=== PATIENT | male | born 1970 | race Caucasian/White ===

== ENCOUNTER 2016-12-27 20:51 | Inpatient (IN) ==
--- NOTE | 2016-12-27 21:13 | Emergency Department Note ---
Disposition Clinical Impression: Elevated troponin I level, Paroxysmal atrial fibrillation with rapid ventricular response Pulmonary embolism Qualifiers: Pulmonary embolism type: other Chronicity: acute Disposition: Admitted As Inpatient Condition: Serious Referrals: Unassigned,Provider [Primary Care Provider] - Forms: ED Satisfaction Letter General Adult HPI - General Chief complaint: ED Shortness of Breath/Dyspnea Stated complaint: JOSÉ MIGUEL, "I want checked for my A-fib", Out of meds Time Seen by Provider: 12/27/16 20:59 Source: patient Limitations: no limitations Nursing Notes Reviewed: Yes Vital Signs Reviewed: Yes - History of Present Illness Pain Scale: 0 - Related Data Home Medications Medication Instructions Recorded Confirmed Albuterol Sulfate [Ventolin Hfa] 2 puff IH Q4H PRN 05/28/16 12/27/16 Ammonium Lactate [Patricia-Hydrolac] 1 appl TP BID PRN 05/28/16 12/27/16 Beclomethasone Diprop 40mcg [QVAR 1 puff IH BID 05/28/16 12/27/16 40 mcg] SUMAtriptan succinate [Imitrex] 50 mg PO DAILY PRN 05/28/16 12/27/16 metFORMIN [Glucophage] 500 mg PO BIDWM 05/28/16 12/27/16 Oxycodone HCl/Acetaminophen 1 each PO Q6H PRN 12/27/16 12/27/16 [Percocet 10-325 mg Tablet] Previous Rx's Medication Instructions Recorded Lisinopril [Zestril] 10 mg PO DAILY #30 tablet 06/04/16 Pravastatin Sodium [Pravachol] 40 mg PO HS #30 tablet 06/04/16 Allergies Allergy/AdvReac Type Severity Reaction Status Date / Time No Known Allergies Allergy Verified 09/21/16 15:13 Past Medical History - Past Medical History Medical history: Reports: arthritis, asthma, atrial fibrillation, COPD, CVA, diabetes, hyperlipidemia, hypertension, renal disease, TIA Surgical history: Reports: non-contributory, other Psychiatric history: Reports: anxiety, PTSD, other - Social History Smoking Status: Never smoker Smokeless Tobacco Status: No Alcohol use: Reports: none Drug use: Reports: none Physical Exam - General Limitations: no limitations General appearance: alert, in no apparent distress Course Vital Signs Temperature 97.4 F L 12/27/16 20:56 Pulse Rate 73 12/27/16 20:56 Respiratory Rate 18 06/29/17 20:56 Blood Pressure 91/57 12/27/16 20:56 O2 Sat by Pulse Oximetry 91 12/27/16 20:56 Temperature 97.4 F L 12/27/16 20:56 Pulse Rate 90 12/27/16 22:36 Respiratory Rate 18 12/27/16 22:36 Blood Pressure 103/72 12/27/16 22:36 O2 Sat by Pulse Oximetry 93 12/27/16 22:36 Oxygen Delivery Oxygen Delivery Non Rebreather Mask Medical Decision Making - MDM Narrative Medical decision making narrative: I examined this patient and my medical decision-making was reviewed with the ELECTRONICS RESEARCH ENGINEER/PA/Advanced Practice Nurse/Resident Physician. I agree with the documented findings, disposition and treatment plan as described except to the extent set forth below. Patient seen today by Dr. Rico and myself, I agree with her evaluation and management plan, supervised care the patient's stay. Patient comes in today and probable A. fib with RVR rapid heart rate some shortness of breath. He has a history of A. fib and has been off his medicines for a while. 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 He do not flex tonight, Coumadin, and he thinks maybe a beta kevin in the past. No meds now. Work in a check an EKG lab work working him up for A. fib and CHF and reassess. Most likely he will need admission. He is in agreement with this plan. 2112 hrs.: Patient had an EKG performed, shows atrial fibrillation, rate is 116 , rapid ventricular response, QRS is 106, QTC is 437, no signs of acute ischemia , compared this with an EKG he had in 2016 that EKG he was in sinus rhythm. Patient has had a history of atrial fibrillation in the past. Chest X-Ray 12/27/16 21:05 IMPRESSION: No acute cardiopulmonary process. D/ / Rogerio Mijares MD / Rogerio Mijares MD Interpreting Provider: Rogerio Mijares MD 2140 hrs.: Patient still is hypoxic on the pulse ox. Room out on a d-dimer also since he is low-moderate risk for PE. Discussing with Dr. Peñaloza from cardiology. 0 hrs.: Patient's troponin is elevated at 0.18 per lab, his creatinine is slightly elevated due to looks like chronic renal insufficiency which she has had higher elevations in the past. I am wondering if this could be causing some of his hypoxia. We did check his chest x-ray which shows no CHF at this time. Waiting N d-dimer, BNP, his old echocardiogram showed a 60% ejection fraction. We are starting heparin at this time. 2214 hrs.: Patient's d-dimer is elevated to over 128,000. Unfortunately his creatinine is elevated also. It has been higher in the past. He does have fluids going and heparin. Cinthia does have a PE that would be the first treatment. We have discussed with him about getting a CTA despite his creatinine being elevated or reporting off and getting a VQ scan and see which she prefers to do. 0 hrs.: Lab called back and said his d-dimer was extra 12,800 and a made correction. Distal elevated. We spoke to the hospitalist they agreed with the admission and hold off on the CTA at this time. We told him that our preference would be to place him in the ICU but they disagreed and said they thought that stepdown unit instead. I asked them to see the patient as soon as he gets to the floor or see him down here. Patient's doing better at this time , vitals are stable. Patient is agreement to the plan for admission. He has the heparin going and the Cardizem. He has had aspirin also. Patient's critical care time exclusive separately billable procedures is 50 minutes. - Lab Data Result diagrams: 12/27/16 21:12 12/27/16 21:12 Lab Results 12/27/16 12/27/16 12/27/16 Range/Units 21:12 21:12 21:12 WBC 12.9 H (4.3-11.1) K/mcL RBC 6.28 H (4.19-5.50) M/mcL Hgb 16.6 (12.9-16.9) g/dL Hct 52.2 H (37.5-50.1) % MCV 83.1 (83.0-100.0) fL MCH 26.4 L (28.0-33.3) pg MCHC 31.8 (31.6-35.5) g/dL RDW 13.9 (11.5-14.5) % Plt Count 221 (140-400) K/mcL MPV 12.5 H (9.4-12.4) fL Immature Gran % 0.3 (0-4) % Seg Neutrophils % 75.1 % Lymphocytes % 18.0 % Monocytes % 6.1 % Eosinophils % 0.2 % Basophils % 0.3 % Neutrophils # 9.7 H (1.6-8.9) K/mcL Lymphocytes # 2.3 (0.6-4.6) K/mcL Monocytes # 0.8 (0.0-1.3) K/mcL Eosinophils # 0.0 (0.0-0.6) K/mcL Basophils # 0.0 (0.0-0.2) K/mcL PT 13.0 H (9.4-12.1) Seconds INR 1.2 APTT 36.1 H (26.0-36.0) Seconds D-Dimer 77498 H (0-500) ng/mLFEU Sodium 139 (136-145) mEq/L Potassium 3.3 L (3.5-4.5) mEq/L Chloride 100 (98-109) mEq/L Carbon Dioxide 24 (19-29) mEq/L BUN 20 (8-26) mg/dL Creatinine 1.83 H (0.72-1.25) mg/dL Est GFR ( Amer) 48 L (> 60) Est GFR (Non-Af Amer) 40 L (> 60) BUN/Creatinine Ratio 11 (6-26) Glucose 139 H (70-99) mg/dL Calculated Osmolality 293 (280-300) Calcium 10.1 (8.6-10.8) mg/dL Troponin I (0-0.03) ng/mL B-Natriuretic Peptide (0-100) pg/mL 12/27/16 12/27/16 Range/Units 21:12 21:12 WBC (4.3-11.1) K/mcL RBC (4.19-5.50) M/mcL Hgb (12.9-16.9) g/dL Hct (37.5-50.1) % MCV (83.0-100.0) fL MCH (28.0-33.3) pg MCHC (31.6-35.5) g/dL RDW (11.5-14.5) % Plt Count (140-400) K/mcL MPV (9.4-12.4) fL Immature Gran % (0-4) % Seg Neutrophils % % Lymphocytes % % Monocytes % % Eosinophils % % Basophils % % Neutrophils # (1.6-8.9) K/mcL Lymphocytes # (0.6-4.6) K/mcL Monocytes # (0.0-1.3) K/mcL Eosinophils # (0.0-0.6) K/mcL Basophils # (0.0-0.2) K/mcL PT (9.4-12.1) Seconds INR APTT (26.0-36.0) Seconds D-Dimer (0-500) ng/mLFEU Sodium (136-145) mEq/L Potassium (3.5-4.5) mEq/L Chloride (98-109) mEq/L Carbon Dioxide (19-29) mEq/L BUN (8-26) mg/dL Creatinine (0.72-1.25) mg/dL Est GFR ( Amer) (> 60) Est GFR (Non-Af Amer) (> 60) BUN/Creatinine Ratio (6-26) Glucose (70-99) mg/dL Calculated Osmolality (280-300) Calcium (8.6-10.8) mg/dL Troponin I 0.12 H* (0-0.03) ng/mL B-Natriuretic Peptide 178 H (0-100) pg/mL
[2016-12-27 21:24] LABS: Basophils % 0.3 %; Eosinophils % 0.2 %; Hematocrit 52.2 % (37.5-50.1); Hemoglobin 16.6 g/dL (12.9-16.9); Immature Granulocytes % 0.3 % (0-4); Lymphocytes # 2.3 K/mcL (0.6-4.6); Mean Corpuscular HGB Conc 31.8 g/dL (31.6-35.5); Mean Corpuscular Hemoglobin 26.4 pg (28.0-33.3); Mean Corpuscular Volume 83.1 fL (83.0-100.0); Mean Platelet Volume 12.5 fL (9.4-12.4); Monocytes # 0.8 K/mcL (0.0-1.3); Monocytes % 6.1 %; Neutrophils # 9.7 K/mcL (1.6-8.9); Platelet Count 221 K/mcL (140-400); Red Blood Count 6.28 M/mcL (4.19-5.50); Red Cell Distribution Width 13.9 % (11.5-14.5); Segmented Neutrophils % 75.1 %
[2016-12-27 21:30] LABS: INR 1.2
[2016-12-27 21:32] LABS: Activated Partial Thrombo Time 36.1 Seconds (26.0-36.0)
[2016-12-27 21:41] LABS: Calcium 10.1 mg/dL (8.6-10.8); Potassium 3.3 mEq/L (3.5-4.5)
[2016-12-27] MEDS ORDERED: 0.9 % Sodium Chloride 1,000 ML IVC ONE (21:44)
[2016-12-27] MEDS ORDERED: *HR* Heparin 5,000 UNIT/ML VIAL IVP ONE (21:44)
[2016-12-27] MEDS ORDERED: *HR* Heparin 5,000 UNIT/ML VIAL IVP PRN ×2 (21:44)
[2016-12-27] MEDS ORDERED: Aspirin 81 MG TAB.CHEW PO STA (21:52)
[2016-12-27] MEDS: Heparin 25,000 UNIT/500 ML D5W 25,000 UNIT/500 ML MLS IVC SCH (22:12)
--- NOTE | 2016-12-27 23:29 | Emergency Department Note ---
Disposition Clinical Impression: Elevated troponin I level, Paroxysmal atrial fibrillation with rapid ventricular response, ZULEIMA (acute kidney injury) Pulmonary embolism Qualifiers: Pulmonary embolism type: other Chronicity: acute Acute cor pulmonale presence: without acute cor pulmonale Qualified Code(s): I26.99 - Other pulmonary embolism without acute cor pulmonale Disposition: Admitted As Inpatient Condition: Fair Forms: ED Satisfaction Letter Time of Disposition: 23:33 SOB HPI - General Chief Complaint: ED Shortness of Breath/Dyspnea Stated Complaint: JOSÉ MIGUEL, "I want checked for my A-fib", Out of meds Time Seen by Provider: 12/27/16 20:59 Source: patient Limitations: no limitations Nursing Notes Reviewed: Yes Vital Signs Reviewed: Yes - History of Present Illness Patient is a 46-year-old male who presents to [facility] ED with a chief complaint of breathing. States his symptoms started earlier today. It is much worse with exertion. States he has a history of atrial fibrillation with RVR. He has been off his medications for the last 2 months. He is supposed to be on Coumadin, flecainide, metoprolol. States he is in transition from Dr. Pedroza to Dr. Peñaloza and has not gotten in to see him to get his medications yet. Denies any chest pain. No nausea, vomiting, fever or chills. No abdominal pain, problems with urination or bowel movements. Pt Subjective Complaint: shortness of breath Onset (ago): hour(s) Severity: severe Consistency/Duration: gradually worsening Improves with: rest Worsens with: exertion Known history of: other (a fib) Associated symptoms: Denies: chest pain, fever, cough, nausea/vomiting, abdominal pain Treatment prior to arrival: none Cough present: No Sputum production: No - Related Data Home oxygen amount: none Home Medications Medication Instructions Recorded Confirmed Albuterol Sulfate [Ventolin Hfa] 2 puff IH Q4H PRN 05/28/16 12/27/16 Ammonium Lactate [Patricia-Hydrolac] 1 appl TP BID PRN 05/28/16 12/27/16 Beclomethasone Diprop 40mcg [QVAR 1 puff IH BID 05/28/16 12/27/16 40 mcg] SUMAtriptan succinate [Imitrex] 50 mg PO DAILY PRN 05/28/16 12/27/16 metFORMIN [Glucophage] 500 mg PO BIDWM 05/28/16 12/27/16 Oxycodone HCl/Acetaminophen 1 each PO Q6H PRN 12/27/16 12/27/16 [Percocet 10-325 mg Tablet] Previous Rx's Medication Instructions Recorded Lisinopril [Zestril] 10 mg PO DAILY #30 tablet 06/04/16 Pravastatin Sodium [Pravachol] 40 mg PO HS #30 tablet 06/04/16 Allergies Allergy/AdvReac Type Severity Reaction Status Date / Time No Known Allergies Allergy Verified 09/21/16 15:13 All systems ED: reviewed and negative except as stated. Past Medical History - Past Medical History Attestation: Yes The following information was validated with the patient. Source: patient Medical history: Reports: arthritis, asthma, atrial fibrillation, COPD, CVA, diabetes, hyperlipidemia, hypertension, renal disease, TIA Surgical history: Reports: non-contributory, other Psychiatric history: Reports: anxiety, PTSD, other - Social History Smoking Status: Never smoker Smokeless Tobacco Status: No Alcohol use: Reports: none Drug use: Reports: none Physical Exam - General Limitations: no limitations General appearance: alert, in no apparent distress - Head Head exam: atraumatic, normocephalic, normal inspection - Eye Eye exam: Present: normal appearance, EOMI - ENT ENT exam: normal exam, normal oropharynx, mucous membranes moist - Neck Neck exam: Present: normal inspection, full ROM, trachea midline - Chest Chest inspection: Present: normal inspection, symmetric chest wall rise - Respiratory Respiratory exam: Present: normal lung sounds bilaterally - Cardiovascular Cardiovascular exam: Present: tachycardia, irregular rhythm - Abdominal Exam Abdominal exam: Present: soft, Non-Tender. Absent: tenderness, distention, guarding, rebound, rigidity - Extremities Exam Extremities exam: Present: normal inspection, full ROM. Absent: tenderness, pedal edema - Back Exam Back exam: Present: normal inspection, full ROM. Absent: tenderness - Neurological Exam Neurological exam: Present: alert - Psychiatric Psychiatric exam: Present: normal affect, normal mood - Skin Skin exam: Present: warm, dry, intact, normal color Course Course Narrative: Patient seen and examined. Patient appears to be in atrial fibrillation with RVR. Cardiopulmonary workup initiated. Due to the sudden onset of his symptoms , we will also get a dimer level. His oxygen saturation on room air is 82%. He is not on any home oxygen. EKG showed atrial fibrillation with a rate of approximately 116 bpm. He is anywhere from 120 to 130 on the monitor. - Reevaluation(s) Reevaluation #1: Patient's lab work shows troponin of 0.12, BNP in the 120s. Chest x-ray appeared clear. Patient was slightly hypotensive with a blood pressure 90/60, 1 L of IV fluids ordered. He also has signs of acute kidney injury. Patient has never seen a manager purchasing in the past. D-dimer level was also elevated over 12,000. There is concern for a pulmonary embolus. However do not feel patient would tolerate going down for a VQ scan at this time. Patient started on Cardizem drip as well as heparin drip. I spoke with paper colorer Dr. Peñaloza who will consult on the patient. I spoke with hospitalist Dr. Wynn and patient has been admitted. Time: 23:32 Vital Signs Temperature 97.4 F L 12/27/16 20:56 Pulse Rate 73 12/27/16 20:56 Respiratory Rate 18 12/27/16 20:56 Blood Pressure 91/57 12/27/16 20:56 O2 Sat by Pulse Oximetry 91 12/27/16 20:56 Temperature 97.4 F L 12/27/16 20:56 Pulse Rate 90 12/27/16 22:36 Respiratory Rate 18 12/27/16 23:15 Blood Pressure 108/73 12/27/16 23:15 O2 Sat by Pulse Oximetry 93 12/27/16 22:36 Oxygen Delivery Oxygen Delivery Non Rebreather Mask Shortness of Breath/Dyspnea - Medical Records Medical records reviewed: Yes I reviewed the patient's medical records. - Lab Data Lab results reviewed: Yes I reviewed the patient's lab results. Result diagrams: 12/27/16 21:12 12/27/16 21:12 Lab Results 12/27/16 12/27/16 12/27/16 Range/Units 21:12 21:12 21:12 WBC 12.9 H (4.3-11.1) K/mcL RBC 6.28 H (4.19-5.50) M/mcL Hgb 16.6 (12.9-16.9) g/dL Hct 52.2 H (37.5-50.1) % MCV 83.1 (83.0-100.0) fL MCH 26.4 L (28.0-33.3) pg MCHC 31.8 (31.6-35.5) g/dL RDW 13.9 (11.5-14.5) % Plt Count 221 (140-400) K/mcL MPV 12.5 H (9.4-12.4) fL Immature Gran % 0.3 (0-4) % Seg Neutrophils % 75.1 % Lymphocytes % 18.0 % Monocytes % 6.1 % Eosinophils % 0.2 % Basophils % 0.3 % Neutrophils # 9.7 H (1.6-8.9) K/mcL Lymphocytes # 2.3 (0.6-4.6) K/mcL Monocytes # 0.8 (0.0-1.3) K/mcL Eosinophils # 0.0 (0.0-0.6) K/mcL Basophils # 0.0 (0.0-0.2) K/mcL PT 13.0 H (9.4-12.1) Seconds INR 1.2 APTT 36.1 H (26.0-36.0) Seconds D-Dimer 58863 H (0-500) ng/mLFEU Sodium 139 (136-145) mEq/L Potassium 3.3 L (3.5-4.5) mEq/L Chloride 100 (98-109) mEq/L Carbon Dioxide 24 (19-29) mEq/L BUN 20 (8-26) mg/dL Creatinine 1.83 H (0.72-1.25) mg/dL Est GFR ( Amer) 48 L (> 60) Est GFR (Non-Af Amer) 40 L (> 60) BUN/Creatinine Ratio 11 (6-26) Glucose 139 H (70-99) mg/dL Calculated Osmolality 293 (280-300) Calcium 10.1 (8.6-10.8) mg/dL Troponin I (0-0.03) ng/mL B-Natriuretic Peptide (0-100) pg/mL 12/27/16 12/27/16 Range/Units 21:12 21:12 WBC (4.3-11.1) K/mcL RBC (4.19-5.50) M/mcL Hgb (12.9-16.9) g/dL Hct (37.5-50.1) % MCV (83.0-100.0) fL MCH (28.0-33.3) pg MCHC (31.6-35.5) g/dL RDW (11.5-14.5) % Plt Count (140-400) K/mcL MPV (9.4-12.4) fL Immature Gran % (0-4) % Seg Neutrophils % % Lymphocytes % % Monocytes % % Eosinophils % % Basophils % % Neutrophils # (1.6-8.9) K/mcL Lymphocytes # (0.6-4.6) K/mcL Monocytes # (0.0-1.3) K/mcL Eosinophils # (0.0-0.6) K/mcL Basophils # (0.0-0.2) K/mcL PT (9.4-12.1) Seconds INR APTT (26.0-36.0) Seconds D-Dimer (0-500) ng/mLFEU Sodium (136-145) mEq/L Potassium (3.5-4.5) mEq/L Chloride (98-109) mEq/L Carbon Dioxide (19-29) mEq/L BUN (8-26) mg/dL Creatinine (0.72-1.25) mg/dL Est GFR ( Amer) (> 60) Est GFR (Non-Af Amer) (> 60) BUN/Creatinine Ratio (6-26) Glucose (70-99) mg/dL Calculated Osmolality (280-300) Calcium (8.6-10.8) mg/dL Troponin I 0.12 H* (0-0.03) ng/mL B-Natriuretic Peptide 178 H (0-100) pg/mL
[2016-12-28] MEDS ORDERED: Naloxone 0.4 MG/ML INJ IVP PRN (01:56)
[2016-12-28] MEDS ORDERED: Ammonium Lactate 30 APPL/225 GM BOTTLE TP PRN (02:02)
[2016-12-28] MEDS ORDERED: SUMAtriptan succinate 50 MG TABLET PO PRN (02:02)
[2016-12-28] MEDS ORDERED: *HR* Dextrose 50 % in Water (Syg) 50 ML SYRINGE IVP PRN (02:03)
[2016-12-28] MEDS ORDERED: D5% in Water 1,000 ML IVC PRN (02:03)
[2016-12-28] MEDS ORDERED: Dextrose Gel 15 GM PO PRN ×2 (02:03)
[2016-12-28] MEDS ORDERED: Levalbuterol Neb 1.25 MG/3 ML IH ONE (02:13)
--- NOTE | 2016-12-28 02:15 | Internal Med History&Physical ---
Date of Encounter: 12/28/16 Time of Encounter: 02:14 Assessment and Plan (1) Acute respiratory failure with hypoxia Current visit: Yes Status: Acute Likely due to suspected pulmonary embolism. Continue with supplemental Oxygen. (2) Atrial fibrillation with RVR Current visit: Yes Status: Acute Known h/o A Fib. Been off medications. Started on diltiazem infusion, with improvement of heart rate. Will obtain echocardiogram. Check TSH. Pt is started on heparin infusion. Consider cardiology consultation. (3) Elevated d-dimer Current visit: Yes Status: Acute suspected to be due to pulmonary embolism. Patient is empirically started on heparin infusion. CTA could not be obtained due to ZULEIMA. Recheck renal function, to get CTA chest. If renal function is not improved, will obtain VQ scan (4) Elevated troponin Current visit: Yes Status: Acute Possibly due to ACS versus pulmoary embolism. Trend troponins (5) ZULEIMA (acute kidney injury) Current visit: Yes Status: Acute Pt received IV fluids. Monitor renal function (6) Leucocytosis Current visit: Yes Status: Acute Possible stress response versus infection. No obvious source of infection at this time. Monitor WBC count Qualifiers: Leukocytosis type: unspecified Qualified Code(s): D72.829 - Elevated white blood cell count, unspecified Internal Medicine - H&P: HPI Chief complaint: shortness of breath Admitted From: Emergency Dept Plans for Post Hospital Care: Home History of present illness: Mr. 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 He can ambulate short distances and uses scooter at home. He presents to the ER, with sudden onset of shortness of breath started yesterday morning. Shortness of breath on minimal exertion. He denies chest pain, palpitations, cough, expectation, wheezing, fever, chills, abdominal pain , nausea, vomiting, dysuria, hematuria, change in bowel habits. He reports urinary urgency for few months. He is evaluated in the ER and was noted to be hypoxic with O2 sats of 82% on room air (per the verbal report from the ER) and was started on high flow oxygen through non rebreather mask. D-dimer was [place] [address]. CTA chest could not be done due to Renal failure and was started on heparin infusion. He was also noted to be in atrial fibrillation with rapid ventricular response. He is starting on diltiazem infusion. He is admitted to the hospitalist service for further workup and management. Past Med Surg Social Fam HX - Past Medical History Medical history: arthritis, asthma, atrial fibrillation, CVA, diabetes, hyperlipidemia, hypertension, renal disease, TIA Psychiatric history: anxiety, PTSD - Past Surgical History Surgical History: non-contributory, other - Social History Smoking Status: Never smoker Smokeless Tobacco Status: No Alcohol use: none Drug use: none - Additional Family History Additional family history: Family Hx reviewed and is non-contributory to current admission Internal Medicine - H&P: Meds Albuterol Sulfate [Ventolin Hfa] 2 puff IH Q4H PRN 05/28/16 [History] Ammonium Lactate [Patricia-Hydrolac] 1 appl TP BID PRN 05/28/16 [History] Beclomethasone Diprop 40mcg [QVAR 40 mcg] 1 puff IH BID 05/28/16 [History] SUMAtriptan succinate [Imitrex] 50 mg PO DAILY PRN 05/28/16 [History] metFORMIN [Glucophage] 500 mg PO BIDWM 05/28/16 [History] Lisinopril [Zestril] 10 mg PO DAILY #30 tablet 06/04/16 [Rx] Pravastatin Sodium [Pravachol] 40 mg PO HS #30 tablet 06/04/16 [Rx] Oxycodone HCl/Acetaminophen [Percocet 10-325 mg Tablet] 1 each PO Q6H PRN [History] Allergies No Known Allergies Allergy (Verified 09/21/16 15:13) All Systems PM: A 10-system review of systems was performed and is negative for pertinent findings except as documented above in the HPI. - Constitutional Vitals: Temp Pulse Resp BP Pulse Ox 100.2 F H 95 18 122/77 89 12/27/16 23:56 12/28/16 00:00 12/27/16 23:56 12/27/16 23:56 12/27/16 23:56 Exam: General: Not in acute distress at the time of my evaluation HEENT: Oral mucosa is moist. No conjunctival palor or scleral icterus Neck: No obvious neck swellings Lungs: Clear to auscultation Cardiac: Regular rate and rhythm. No significant murmurs Abdomen: Soft, non tender. Bowel sounds present Genitourinary: No shelton catheter Neurological: Alert and oriented. No gross localizing deficits Psych: Not aggressive or agitated Extremities: Hip pain and limited movement. B/L mild leg edema Skin: No generalized rash Internal Med - H&P Results - Labs CBC & Chem 7: 12/27/16 21:12 12/27/16 21:12 - EKG Data -: EKG Interpreted by Myself - EKG Data EKG comments: Atrial fibrillation with rapid ventricular response, heart rate 116. T-wave inversion in lead 3. ST depression in V4-V6 12/28/16 02:50 - Impressions ITS Impressions Chest X-Ray 12/27/16 21:05 IMPRESSION: No acute cardiopulmonary process. D/ / Rogerio Mijares MD / Rogerio Mijares MD Interpreting Provider: Rogerio Mijares MD - VTE Reasons for not Prescribing Prophylaxis: Not indicated-Anticoagulated or INR therapeutic
[2016-12-28 03:21] LABS: Basophils % 0.4 %; Eosinophils # 0.1 K/mcL (0.0-0.6); Eosinophils % 0.9 %; Hematocrit 43.4 % (37.5-50.1); Immature Granulocytes % 0.2 % (0-4); Lymphocytes # 3.5 K/mcL (0.6-4.6); Lymphocytes % 32.9 %; Mean Corpuscular HGB Conc 33.4 g/dL (31.6-35.5); Mean Corpuscular Hemoglobin 27.5 pg (28.0-33.3); Mean Corpuscular Volume 82.2 fL (83.0-100.0); Mean Platelet Volume 12.6 fL (9.4-12.4); Monocytes # 0.7 K/mcL (0.0-1.3); Neutrophils # 6.2 K/mcL (1.6-8.9); Platelet Count 148 K/mcL (140-400); Red Blood Count 5.28 M/mcL (4.19-5.50); Red Cell Distribution Width 14.1 % (11.5-14.5); Segmented Neutrophils % 58.6 %
[2016-12-28 03:25] LABS: Hemoglobin 14.5 g/dL (12.9-16.9)
[2016-12-28 03:36] LABS: BUN/Creatinine Ratio 16 (6-26); Blood Urea Nitrogen 20 mg/dL (8-26); Calcium 9.2 mg/dL (8.6-10.8); Carbon Dioxide 23 mEq/L (19-29); Chloride 105 mEq/L (98-109); Chol/HDL Ratio 5.8 (0-4.9); Cholesterol 169 mg/dL (< 200); Glucose 175 mg/dL (70-99); HDL Cholesterol 29 mg/dL (40-59); LDL Cholesterol,Calculated 118 mg/dL (0-99); Osmolality,Calculated 293 (280-300); Potassium 3.5 mEq/L (3.5-4.5); Sodium 138 mEq/L (136-145); Triglycerides 112 mg/dL (< 150); eGFR For African Americans > 60 (> 60); eGFR For Non-African Americans > 60 (> 60)
[2016-12-28 03:44] LABS: Activated Partial Thrombo Time 144.7 Seconds (26.0-36.0)
[2016-12-28] MEDS: Beclomethasone 40mcg MDI IH SCH ×3 (03:48→22:04)
[2016-12-28 03:49] LABS: Heparin anti-factor XA UFH 0.83 IU/mL (0.30-0.70)
[2016-12-28 03:59] LABS: Thyroid Stimulating Hormone 0.595 mcIU/mL (0.350-4.840)
[2016-12-28] MEDS: 0.9 % Sodium Chloride 1,000 ML IVC SCH ×2 (04:18→11:17)
--- NOTE | 2016-12-28 06:45 | Event Note ---
Date of Encounter: 12/28/16 Time of Encounter: 06:42 Hospitalist note: CTA chest done this morning reports b/l pulmonary embolism. Pt remains hemodynamically stable at this time. Continue with heparin infusion. Will consult Interventional radiologist. Keep the pt NPO
[2016-12-28] MEDS: Insulin LISPRO 300 UNITS/3 ML VIAL SQ SCH ×4 (08:11→22:00)
[2016-12-28] MEDS ORDERED: Perflutren Lipid Microsphere 1.3 ML in 0.9 % Sodium Chloride 8.7 ML IVP ONE (09:09)
--- NOTE | 2016-12-28 13:07 | Electrocardiograph Report ---
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
[2016-12-28] MEDS ORDERED: D5% in 0.45% NACL 1,000 ML IVC ONE (13:44)
--- NOTE | 2016-12-28 14:17 | Cardiology Consult Note ---
Date of Encounter: 12/28/16 Time of Encounter: 14:06 Assessment and Plan (1) Atrial fibrillation with RVR Current Visit: Yes Status: Acute Presented with mild atrial fibrillation with RVR. HR 117. Now rate controlled after receiving IV cardizem. Start metoprolol. TTE 05/29/16: EF 60-65%. Mild LVH. No significant valvular disease. Rate control strategy is recommended with at least one month of anticoagulation before possible DCCV or starting antiarrythmic therapy. Patient has difficulty following INR appointments. I will bennett check Xarelto with PE dosing for AC consideration. (2) Pulmonary embolism Current Visit: Yes Status: Acute Acute extensive bilateral PE. On heparin GTT. I will bennett check xarelto for PE dosing. If it is not affordable he will need coumadin with heparin bridging. Qualifiers: Pulmonary embolism type: other Chronicity: acute Acute cor pulmonale presence: without acute cor pulmonale Qualified Code(s): I26.99 - Other pulmonary embolism without acute cor pulmonale Discussion w patient/family: The assessment and plan as outlined above was discussed with the patient and/or family members who expressed understanding and agreement. All questions were answered. Thank you for involving us in the care of your patient. Please call with any questions. History of Present Illness Consult date: 12/28/16 Requesting physician: Babak Wynn Consult reason: atrial fibrillation with RVR Chief complaint: SOB History of present illness: Mr. Dodge is a 46 year old male with a history of atrial fibrillation, CVA at age 13, DM type II, HTN, and HLD who presented with sudden onset of SOB. He is found to have extensive bilateral PE. He is currently on heparin gtt. Cardiology consulted for atrial fibrillation with RVR. He reports difficulty making it to his coumadin clinic appointments earlier this year due to multiple issues. He was discharged from the coumadin clinic and then was unable to find anyone to monitor his INR so his coumadin prescriptions were cancelled. He was set up for flecainide initiation in July but did not proceed due to coumadin issues. He was previously on flecainide but ran out of the medication. Past Med Surg Social Fam HX - Past Medical History Medical history: arthritis, asthma, atrial fibrillation, CVA, diabetes, hyperlipidemia, hypertension, renal disease, TIA Psychiatric history: anxiety, PTSD - Past Surgical History Surgical History: non-contributory, other - Social History Smoking Status: Never smoker Smokeless Tobacco Status: No Alcohol use: none Drug use: none Medications and Allergies Albuterol Sulfate [Ventolin Hfa] 2 puff IH Q4H PRN 05/28/16 [History] Ammonium Lactate [Patricia-Hydrolac] 1 appl TP BID PRN 05/28/16 [History] Beclomethasone Diprop 40mcg [QVAR 40 mcg] 1 puff IH BID 05/28/16 [History] SUMAtriptan succinate [Imitrex] 50 mg PO DAILY PRN 05/28/16 [History] metFORMIN [Glucophage] 500 mg PO BIDWM 05/28/16 [History] Lisinopril [Zestril] 10 mg PO DAILY #30 tablet 06/04/16 [Rx] Pravastatin Sodium [Pravachol] 40 mg PO HS #30 tablet 06/04/16 [Rx] Oxycodone HCl/Acetaminophen [Percocet 10-325 mg Tablet] 1 each PO Q6H PRN [History] Allergies No Known Allergies Allergy (Verified 09/21/16 15:13) All Systems Review: A 10-system review of systems was performed and is negative for pertinent findings except as documented above in the HPI. Physical Examination Vital Signs, Last 4 Hours Temp Pulse Resp BP Pulse Ox 12/28/16 12:52 86 95 12/28/16 11:34 97.5 F L 87 18 114/84 93 12/28/16 11:26 18 93 12/28/16 10:55 89 118/87 95 General: Conversant, No Apparent Distress HEENT: Atraumatic, Normocephaly, Mucus Membranes Moist Neck: No JVD, Normal carotid pulses Cardiac: Other Lungs: Normal Breath Sounds, No Wheeze, Rales, Rhonchi Neuro: Alert and responsive, No focal deficits noted Abdomen: Soft, Non-Tender Skin: No rashes noted on visualized skin Musculoskeletal: No Chest Wall Tenderness Extremities: No Clubbing, No Cyanosis, No Edema, Normal Pulses Results 12/28/16 03:11 12/28/16 03:11 Lab Results 12/28/16 12/28/16 12/28/16 03:11 03:11 03:11 WBC 10.6 Hgb 14.5 D Hct 43.4 Plt Count 148 APTT 144.7 H* D Sodium Potassium Chloride Carbon Dioxide BUN Creatinine Glucose Calcium Magnesium Troponin I 0.89 H* TSH 12/28/16 12/28/16 12/28/16 03:11 08:04 10:30 WBC Hgb Hct Plt Count APTT 57.6 H D Sodium 138 Potassium 3.5 Chloride 105 Carbon Dioxide 23 BUN 20 Creatinine 1.26 H Glucose 175 H Calcium 9.2 Magnesium 2.0 Troponin I 0.77 H* TSH 0.595 - Imaging and Cardiology Echo: report reviewed Consult Discharge Plan - Plan Referrals: Isaac Kay DO [Resident] - 01/21/17 10:30 am Orquidea Vila MD [Partnered Physician] - 01/04/17 12:45 pm
[2016-12-28] MEDS: *HR* OxyCODONE/APAP 10/325 TABLET PO PRN (15:59)
[2016-12-28] MEDS: Heparin 25,000 UNIT/500 ML D5W 25,000 UNIT/500 ML MLS IVC SCH (16:00)
[2016-12-29] MEDS: *HR* OxyCODONE/APAP 10/325 TABLET PO PRN ×2 (00:18→12:54)
[2016-12-29] MEDS: 0.9 % Sodium Chloride 1,000 ML IVC SCH ×2 (05:10→22:09)
[2016-12-29] MEDS: Insulin LISPRO 300 UNITS/3 ML VIAL SQ SCH ×4 (08:04→21:42)
[2016-12-29] MEDS: Heparin 25,000 UNIT/500 ML D5W 25,000 UNIT/500 ML MLS IVC SCH (08:28)
[2016-12-29 08:39] LABS: Basophils % 0.5 %; Eosinophils # 0.3 K/mcL (0.0-0.6); Eosinophils % 3.7 %; Hematocrit 41.4 % (37.5-50.1); Immature Granulocytes % 0.2 % (0-4); Lymphocytes % 36.5 %; Mean Corpuscular HGB Conc 30.9 g/dL (31.6-35.5); Mean Corpuscular Hemoglobin 26.4 pg (28.0-33.3); Mean Corpuscular Volume 85.5 fL (83.0-100.0); Monocytes # 0.7 K/mcL (0.0-1.3); Monocytes % 8.2 %; Neutrophils # 4.1 K/mcL (1.6-8.9); Platelet Count 119 K/mcL (140-400); Red Blood Count 4.84 M/mcL (4.19-5.50); Red Cell Distribution Width 14.1 % (11.5-14.5); Segmented Neutrophils % 50.9 %
[2016-12-29 08:46] LABS: Hemoglobin 12.8 g/dL (12.9-16.9)
[2016-12-29 08:47] LABS: BUN/Creatinine Ratio 18 (6-26); Blood Urea Nitrogen 16 mg/dL (8-26); Calcium 8.4 mg/dL (8.6-10.8); Carbon Dioxide 23 mEq/L (19-29); Chloride 107 mEq/L (98-109); Glucose 105 mg/dL (70-99); Osmolality,Calculated 288 (280-300); Potassium 3.7 mEq/L (3.5-4.5); Sodium 138 mEq/L (136-145); eGFR For African Americans > 60 (> 60); eGFR For Non-African Americans > 60 (> 60)
--- NOTE | 2016-12-29 09:07 | Cardiology Progress Note ---
Date of Encounter: 12/29/16 Time of Encounter: 09:05 Assessment and Plan (1) A-fib Current Visit: No Status: Acute Presented with mild atrial fibrillation with RVR. HR 117. Now rate controlled after receiving IV cardizem--since stopped and now rate controlled on PO Metoprolol 25mg BID. 12 hr tele AVG HR 88, 90s at bedside. TTE 12/28/16 EF 55-60%, mild TR. Rate control strategy is recommended with at least one month of anticoagulation before possible DCCV or starting antiarrythmic therapy. Patient has difficulty following INR appointments. Recommend Xarelto with PE dosing for AC consideration. Called pharmacy, requires a prior auth, which we will complete through our office. Free 30 day card is able to used per pharmacy. Recommend heparin gtt while inpt given the extensive PEs with Xarelto PE dosing at discharge. Cardiology signing off. Reconsult PRN. Follow-up in 2-3 weeks as outpt. Will coordinate. Qualifiers: Atrial fibrillation type: paroxysmal Qualified Code(s): I48.0 - Paroxysmal atrial fibrillation (2) Elevated troponin I level Current Visit: Yes Status: Acute Troponin 0.12, 0.89, 0.77--now downtrending. Troponin elevation in setting of extensive bilateral PE and A-Fib RVR and ZULEIMA on admission. Suspect demand ischemia, nondiagnostic for ACS. Echo shows preserved EF. No further cardiac testing warranted. (3) Pulmonary embolism Current Visit: Yes Status: Acute Acute extensive bilateral PE. On heparin GTT. Xarelto PE dosing recommended given his hx of noncompliance with INR checks. Requires prior authorization, which will complete through our office. In the meantime, pharmacy states they can use free 30 day card. Heparin gtt while inpt with Xarelto PE dosing at discharge 15mg BID x 21 days, then 20mg daily. Dr. Peñaloza spoke with IR physician (Dr. South) yesterday. He reported that based on the visual appearance of the thombi on the CT scan, that he would not be a good candidate for catheter-based intervention. Continue heparin gtt. Qualifiers: Pulmonary embolism type: other Chronicity: acute Acute cor pulmonale presence: without acute cor pulmonale Qualified Code(s): I26.99 - Other pulmonary embolism without acute cor pulmonale Discussion w patient/family: The assessment and plan as outlined above was discussed with the patient and/or family members who expressed understanding and agreement. All questions were answered. Thank you for involving us in the care of your patient. Please call with any questions. I will discuss all the above with Dr. Webber and make changes as necessary. Subjective Principal diagnosis: A-Fib, PE Interval history: Pt denies chest pain or palpitations. Reports breathing is okay. Objective Vital Signs, Last 4 Hours Temp Pulse Resp BP Pulse Ox 12/29/16 08:44 89 124/91 93 12/29/16 08:25 85 91 12/29/16 07:47 98.2 F 74 18 98/77 94 Vital Signs Temp Pulse Resp BP Pulse Ox 12/29/16 08:44 89 124/91 93 12/29/16 08:25 85 91 12/29/16 07:47 98.2 F 74 18 98/77 94 12/29/16 04:25 98 12/29/16 00:45 98 12/29/16 00:10 97.5 F L 98 16 95/77 93 12/28/16 23:35 93 12/28/16 22:05 16 93 12/28/16 19:24 97.5 F L 81 18 107/74 93 12/28/16 17:21 97 125/78 95 12/28/16 16:32 97.6 F 93 18 125/90 96 12/28/16 15:35 93 115/88 96 12/28/16 12:52 86 95 12/28/16 11:34 97.5 F L 87 18 114/84 93 12/28/16 11:26 18 93 12/28/16 10:55 89 118/87 95 Intake and Output 12/28/16 12/29/16 12/29/16 23:59 07:59 15:59 Intake Total 493.3 / 493.3 1098.5 / 1098.5 308 / 308 Output Total 0 / 0 Balance 493.3 / 493.3 1098.5 / 1098.5 308 / 308 Intake: IV Fluids 253.3 / 253.3 1098.5 / 1098.5 308 / 308 0.9 % Sodium Chloride 1, 1000 / 1000 000 ML @ 60 mls/hr IVC . [id number] JUANITA Rx#: [id number] Heparin 25,000 UNIT/500 253.3 / 253.3 98.5 / 98.5 308 / 308 ML D5W 25,000 unit In 500 ml @ 14 UNIT/KG/HR 34. 673 mls/hr IVC .[id number] [facility] Rx#:[id number] Oral 240 / 240 Output: Urine 0 / 0 Other: Meal Dinner Percent of Meal Consumed 100% Blood Glucose* 128 94 General: Conversant, No Apparent Distress HEENT: Atraumatic, Normocephaly, Mucus Membranes Moist Neck: Normal carotid pulses Cardiac: Other (irregularly irregular) Lungs: Other (diminished) Neuro: Alert and responsive, No focal deficits noted Abdomen: Soft, Non-Tender Skin: No rashes noted on visualized skin Musculoskeletal: No Chest Wall Tenderness Extremities: No Clubbing, No Cyanosis, No Edema, Normal Pulses Results 12/29/16 08:08 12/29/16 08:08 Lab Results 12/28/16 12/28/16 12/28/16 08:04 10:30 17:46 WBC Hgb Hct Plt Count APTT 57.6 H D 86.6 H D Sodium Potassium Chloride Carbon Dioxide BUN Creatinine Glucose Calcium Troponin I 0.77 H* 12/29/16 12/29/16 12/29/16 00:51 08:08 08:08 WBC 8.1 Hgb 12.8 L D Hct 41.4 Plt Count 119 L APTT 68.6 H Sodium 138 Potassium 3.7 Chloride 107 Carbon Dioxide 23 BUN 16 Creatinine 0.91 Glucose 105 H Calcium 8.4 L Troponin I Short CBC 12/29/16 Range/Units 08:08 WBC 8.1 (4.3-11.1) K/mcL Hgb 12.8 L D (12.9-16.9) g/dL Hct 41.4 (37.5-50.1) % Plt Count 119 L (140-400) K/mcL Neutrophils # 4.1 (1.6-8.9) K/mcL BMP 12/29/16 Range/Units 08:08 Sodium 138 (136-145) mEq/L Potassium 3.7 (3.5-4.5) mEq/L Chloride 107 (98-109) mEq/L Carbon Dioxide 23 (19-29) mEq/L BUN 16 (8-26) mg/dL Creatinine 0.91 (0.72-1.25) mg/dL Glucose 105 H (70-99) mg/dL Calcium 8.4 L (8.6-10.8) mg/dL Cardiac Enzymes 12/28/16 Range/Units 08:04 Troponin I 0.77 H* (0-0.03) ng/mL Active Medications Albuterol Sulfate (Albuterol Inhaler) 2 puff IH Q4H PRN PRN Reason: Shortness Of Breath Stop: 06/29/17 02:03 Beclomethasone Dipropionate (Qvar 40 Mcg) 1 puff IH BIDR JUANITA PRN Reason: Protocol Stop: 06/29/17 02:16 Last Admin: 12/28/16 22:04 Dose: 1 puff Dextrose/Water (Dextrose 50% (Syg)) 25 ml IVP AD PRN PRN Reason: Hypoglycemia Stop: 06/29/17 02:04 Glucagon (Glucagen) 1 mg IM ONCE PRN PRN Reason: Hypoglycemia Stop: 06/29/17 02:04 Glucose (Gluctose) 15 gm PO ONCE PRN PRN Reason: Hypoglycemia Stop: 06/29/17 02:04 Glucose (Gluctose) 30 gm PO ONCE PRN PRN Reason: Hypoglycemia Stop: 06/29/17 02:04 Heparin Sodium (Porcine) (Heparin) 8,700 unit 70 unit/kg (8700 unit) IVP Q6HR PRN PRN Reason: SEE COMMENTS Stop: 06/28/17 21:45 Heparin Sodium (Porcine) (Heparin) 4,300 unit 35 unit/kg (4300 unit) IVP Q6H PRN PRN Reason: SEE COMMENTS Stop: 06/28/17 21:45 Last Admin: 12/28/16 11:10 Dose: 4,300 unit Heparin Sodium/Dextrose (Heparin 25,000 Unit/500 Ml D5w) 25,000 unit in 500 mls @ 34.673 mls/hr IVC .[id number] JUANITA; 14 UNIT/KG/HR PRN Reason: Protocol Stop: 06/28/17 21:46 Last Admin: 12/29/16 08:28 Dose: 12.77 unit/kg/hr, 31.626 mls/hr Dextrose (Dextrose 5%) 1,000 mls @ 100 mls/hr IVC .Q10H PRN PRN Reason: HYPOGLYCEMIA Stop: 06/29/17 02:04 Sodium Chloride (0.9 % Sodium Chloride) 1,000 mls @ 60 mls/hr IVC .[id number] [facility] Stop: 06/29/17 04:16 Last Admin: 12/29/16 05:10 Dose: 60 mls/hr Insulin Human Lispro (Humalog) 0 units SQ HS [facility] PRN Reason: Protocol Stop: 06/29/17 21:01 Last Admin: 12/28/16 22:00 Dose: Not Given Insulin Human Lispro (Humalog) 0 units SQ TIDAC [facility] PRN Reason: Protocol Stop: 06/29/17 07:31 Last Admin: 12/29/16 08:04 Dose: Not Given Lactic Acid (Amlactin) 1 appl TP BID PRN PRN Reason: Dry Skin Metoprolol Tartrate (Lopressor) 25 mg PO BID [facility] Stop: 06/29/17 14:31 Last Admin: 12/28/16 21:57 Dose: 25 mg Naloxone HCl (Narcan) 0.4 mg IVP Q2MIN PRN PRN Reason: Opioid Reversal Stop: 06/29/17 01:57 Oxycodone/Acetaminophen (Percocet 10/325) 1 each PO Q6H PRN PRN Reason: Moderate Pain Stop: 06/29/17 02:03 Last Admin: 12/29/16 00:18 Dose: 1 each Simvastatin (Zocor) 20 mg PO HS [facility] Stop: 06/29/17 21:01 Last Admin: 12/28/16 21:57 Dose: 20 mg Sumatriptan Succinate (Imitrex) 50 mg PO DAILY PRN PRN Reason: Migraine Headache Stop: 06/29/17 02:03 - Imaging and Cardiology Echo: report reviewed - EKG Interpretation EKG results cardiology: other (12 hr tele AVG HR 88, A-Fib) - VTE Reasons for not Prescribing Prophylaxis: Not indicated-Anticoagulated or INR therapeutic Consult Discharge Plan - Plan Referrals: Isaac Kay DO [Resident] - 01/21/17 10:30 am Orquidea Vila MD [Partnered Physician] - 01/04/17 12:45 pm
[2016-12-29] MEDS: Beclomethasone 40mcg MDI IH SCH ×2 (10:26→21:48)
--- NOTE | 2016-12-29 11:38 | Internal Med Progress Note ---
Date of Encounter: 12/29/16 Time of Encounter: 11:35 - Assessment and plan (1) Paroxysmal atrial fibrillation with rapid ventricular response Current Visit: Yes Status: Acute Assessment and plan: Presented with mild atrial fibrillation with RVR. Started initially on Cardizem drip, heart rate has stabilized, we Cardizem drip. Cardiology following TTE 12/28/16 EF 55-60%, mild TR. As per cardiology, Rate control strategy is recommended with at least one month of anticoagulation before possible DCCV or starting antiarrythmic therapy. Patient has difficulty following INR appointments. Recommend Xarelto with PE dosing for AC consideration. Recommend heparin gtt while inpt given the extensive PEs with Xarelto PE dosing at discharge. (2) Acute respiratory failure with hypoxia Current Visit: Yes Status: Acute Assessment and plan: Acute respiratory failure secondary to extensive PE. Currently saturating well on 4 L oxygen. As discussed with cardiology, possible has right ventricular dysfunction due to extensive PE. However clinically improved and hemodynamically stable. Will continue treatment for acute PE and titrate oxygen to maintain saturation more than 95%. (3) Pulmonary embolism Current Visit: Yes Status: Acute Assessment and plan: Acute extensive bilateral PE. On heparin GTT. Xarelto PE dosing recommended given his hx of noncompliance with INR checks. Heparin gtt while inpt with Xarelto PE dosing at discharge 15mg BID x 21 days, then 20mg daily. Dr. Peñaloza spoke with IR physician (Dr. South) yesterday. He reported that based on the visual appearance of the thombi on the CT scan, that he would not be a good candidate for catheter-based intervention. patinet clinically better and hemodynamically stable, Continue heparin gtt. Qualifiers: Pulmonary embolism type: other Chronicity: acute Acute cor pulmonale presence: without acute cor pulmonale Qualified Code(s): I26.99 - Other pulmonary embolism without acute cor pulmonale (4) ZULEIMA (acute kidney injury) Current Visit: Yes Status: Acute Assessment and plan: improved, will monitor (5) Elevated troponin Current Visit: Yes Status: Acute Assessment and plan: most likely 2/2 acute PE and demand ischemia - Subjective Interval history: Patient seen at the bedside, admitted for extensive PE. Lying in bed, no acute distress, denies any chest pain or shortness of breath. No leg swelling or cough pain, currently on heparin drip. - Constitutional Vitals: Temp Pulse Resp BP Pulse Ox 98.2 F 81 16 124/91 93 12/29/16 07:47 12/29/16 10:28 12/29/16 10:26 12/29/16 08:44 12/29/16 10:28 General appearance: Present: A&O X 3, no acute distress Exam: General: Not in acute distress at the time of my evaluation HEENT: Oral mucosa is moist. No conjunctival palor or scleral icterus Neck: No obvious neck swellings Lungs: Clear to auscultation Cardiac: Regular rate and rhythm. No significant murmurs Abdomen: Soft, non tender. Bowel sounds present Genitourinary: No shelton catheter Neurological: Alert and oriented. No gross localizing deficits Psych: Not aggressive or agitated Extremities: Hip pain and limited movement. B/L mild leg edema Skin: No generalized rash Internal Medicine: Result - Labs CBC & Chem 7: 12/29/16 08:08 12/29/16 08:08 Labs: Short CBC 12/29/16 Range/Units 08:08 WBC 8.1 (4.3-11.1) K/mcL Hgb 12.8 L D (12.9-16.9) g/dL Hct 41.4 (37.5-50.1) % Plt Count 119 L (140-400) K/mcL Neutrophils # 4.1 (1.6-8.9) K/mcL BMP 12/29/16 08:08 Sodium 138 Potassium 3.7 Chloride 107 Carbon Dioxide 23 BUN 16 Creatinine 0.91 Glucose 105 H Calcium 8.4 L - ABG Interpretation ABG results: PT/INR, D-dimer PT 13.0 Seconds (9.4-12.1) H 12/27/16 21:12 D-Dimer [id number] ng/mLFEU (0-500) H 12/27/16 21:12 - VTE Reasons for not Prescribing Prophylaxis: Not indicated-Anticoagulated or INR therapeutic Consult Discharge Plan - Plan Referrals: Isaac Kay DO [Resident] - 01/21/17 10:30 am Orquidea Vila MD [Partnered Physician] - 01/04/17 12:45 pm
--- NOTE | 2016-12-29 23:42 | Venous Imaging Report ---
LE Venous Duplex Patient Name:Jaylen Dodge Order Number:[id number] Procedure Date:12/28/2016 Date:1970Age:46 yrs Gender:Male Location:[facility] Room #: 2N13 Vp Treasurer:Jonny Vila Referring MD:Noe Pedroza MD, [facility] station installation supervisor:None Reading MD:Jonathan Ramon MD Primary Indications:Pulmonary embolism Secondary Indications: Risk Factors Yes/No None Impressions: Right lower extremity: normal superficial and deep exam.Lower extremity abnormal deep exam: left superficial femoral vein demonstrates chronic thrombosis. Flow maintained and phasic Findings Prior Study: No prior study available for comparison. Lower Extremity Venous Duplex Side Vein Compress Spontaneous Flow Augment Diameter (cm) Depth (cm) Right Distal Iliac Normal Yes Phasic Yes Right Common Femoral Normal Yes Phasic Yes Right Superficial Femoral Normal Yes Phasic Yes Right Popliteal Normal Yes Phasic Yes Right Posterior Tibial Normal Yes Phasic Yes Right Peroneal Normal Yes Phasic Yes Right Saphenofemoral Junction Normal Yes Phasic Yes Right Great Saphenous Normal Yes Phasic Yes Right Lesser Saphenous Normal Yes Phasic Yes Left Distal Iliac Normal Yes Phasic Yes Left Common Femoral Normal Yes Phasic Yes Left Superficial Femoral Partial Yes Phasic Yes Left Popliteal Normal Yes Phasic Yes Left Posterior Tibial Normal Yes Phasic Yes Left Peroneal Normal Yes Phasic Yes Left Saphenofemoral [place] Normal Yes Phasic Yes Left Great Saphenous Normal Yes Phasic Yes Left Lesser Saphenous Normal Yes Phasic Yes Updated by Jonathan Ramon MD on 12/29/2016 11:37:41 PM electronically signed on 12/29/2016 11:38:16 PM with status of Final
[2016-12-30] MEDS: Heparin 25,000 UNIT/500 ML D5W 25,000 UNIT/500 ML MLS IVC SCH ×3 (00:15→18:55)
[2016-12-30] MEDS: *HR* OxyCODONE/APAP 10/325 TABLET PO PRN ×4 (01:10→20:22)
[2016-12-30] MEDS: Insulin LISPRO 300 UNITS/3 ML VIAL SQ SCH ×4 (08:08→21:15)
[2016-12-30 10:31] LABS: Basophils % 0.3 %; Eosinophils # 0.3 K/mcL (0.0-0.6); Eosinophils % 3.4 %; Hematocrit 38.9 % (37.5-50.1); Hemoglobin 12.3 g/dL (12.9-16.9); Immature Granulocytes % 0.1 % (0-4); Lymphocytes % 40.8 %; Mean Corpuscular HGB Conc 31.6 g/dL (31.6-35.5); Mean Corpuscular Hemoglobin 26.6 pg (28.0-33.3); Mean Corpuscular Volume 84.2 fL (83.0-100.0); Mean Platelet Volume 12.9 fL (9.4-12.4); Monocytes # 0.6 K/mcL (0.0-1.3); Monocytes % 8.1 %; Neutrophils # 3.5 K/mcL (1.6-8.9); Platelet Count 120 K/mcL (140-400); Red Blood Count 4.62 M/mcL (4.19-5.50); Red Cell Distribution Width 14.1 % (11.5-14.5); Segmented Neutrophils % 47.3 %
[2016-12-30 10:42] LABS: BUN/Creatinine Ratio 16 (6-26); Blood Urea Nitrogen 14 mg/dL (8-26); Calcium 8.5 mg/dL (8.6-10.8); Carbon Dioxide 24 mEq/L (19-29); Chloride 108 mEq/L (98-109); Glucose 104 mg/dL (70-99); Osmolality,Calculated 289 (280-300); Sodium 139 mEq/L (136-145); eGFR For African Americans > 60 (> 60); eGFR For Non-African Americans > 60 (> 60)
[2016-12-30 10:43] LABS: Potassium 3.9 mEq/L (3.5-4.5)
[2016-12-30] MEDS: Beclomethasone 40mcg MDI IH SCH ×2 (11:33→21:56)
--- NOTE | 2016-12-30 12:14 | Internal Med Progress Note ---
Date of Encounter: 12/30/16 Time of Encounter: 12:12 - Assessment and plan (1) Paroxysmal atrial fibrillation with rapid ventricular response Current Visit: Yes Status: Acute Assessment and plan: Presented with mild atrial fibrillation with RVR. Started initially on Cardizem drip, heart rate has stabilized, dc Cardizem drip. Cardiology following, started on metoprolol 25 bid. TTE 12/28/16 EF 55-60%, mild TR. As per cardiology, Rate control strategy is recommended with at least one month of anticoagulation before possible DCCV or starting antiarrythmic therapy. Patient has difficulty following INR appointments. Recommend Xarelto with PE dosing for AC consideration. Recommend heparin gtt while inpt given the extensive PEs with Xarelto PE dosing at discharge. (2) Acute respiratory failure with hypoxia Current Visit: Yes Status: Acute Assessment and plan: Acute respiratory failure secondary to extensive PE. Currently saturating well on 2 L oxygen. As discussed with cardiology, possible has right ventricular dysfunction due to extensive PE. However clinically improved and hemodynamically stable. Will continue treatment for acute PE and titrate oxygen to maintain saturation more than 95%. (3) Pulmonary embolism Current Visit: Yes Status: Acute Assessment and plan: Acute extensive bilateral PE. On heparin GTT. Xarelto PE dosing recommended given his hx of noncompliance with INR checks. Heparin gtt while inpt with Xarelto PE dosing at discharge 15mg BID x 21 days, then 20mg daily. Dr. Peñaloza spoke with IR physician (Dr. South) yesterday. He reported that based on the visual appearance of the thombi on the CT scan, that he would not be a good candidate for catheter-based intervention. patinet clinically better and hemodynamically stable, Continue heparin gtt. will make him OOB to chair today, watch for o2 desat on movement. not ready for PT/OT yet Qualifiers: Pulmonary embolism type: other Chronicity: acute Acute cor pulmonale presence: without acute cor pulmonale Qualified Code(s): I26.99 - Other pulmonary embolism without acute cor pulmonale (4) ZULEIMA (acute kidney injury) Current Visit: Yes Status: Acute Assessment and plan: improved, will monitor (5) Elevated troponin Current Visit: Yes Status: Acute Assessment and plan: most likely 2/2 acute PE and demand ischemia - Subjective Interval history: Patient seen at the bedside, admitted for extensive PE. Lying in bed, no acute distress, denies any chest pain or shortness of breath. No leg swelling or cough pain, currently on heparin drip. - Constitutional Vitals: Temp Pulse Resp BP Pulse Ox 97.8 F 85 20 123/82 94 12/30/16 11:30 12/30/16 11:42 12/30/16 11:38 12/30/16 11:30 12/30/16 11:42 General appearance: Present: A&O X 3, no acute distress Exam: HEENT: Oral mucosa is moist. No conjunctival palor or scleral icterus Neck: No obvious neck swellings Lungs: Clear to auscultation Cardiac: Regular rate and rhythm. No significant murmurs Abdomen: Soft, non tender. Bowel sounds present Genitourinary: No shelton catheter Neurological: Alert and oriented. No gross localizing deficits Psych: Not aggressive or agitated Extremities: Hip pain and limited movement. B/L mild leg edema Skin: No generalized rash Internal Medicine: Result - Labs CBC & Chem 7: 12/30/16 10:25 12/30/16 10:25 Labs: Short CBC 12/30/16 Range/Units 10:25 WBC 7.4 (4.3-11.1) K/mcL Hgb 12.3 L (12.9-16.9) g/dL Hct 38.9 (37.5-50.1) % Plt Count 120 L (140-400) K/mcL Neutrophils # 3.5 (1.6-8.9) K/mcL BMP 12/30/16 10:25 Sodium 139 Potassium 3.9 Chloride 108 Carbon Dioxide 24 BUN 14 Creatinine 0.87 Glucose 104 H Calcium 8.5 L - ABG Interpretation ABG results: PT/INR, D-dimer PT 13.0 Seconds (9.4-12.1) H 12/27/16 21:12 D-Dimer [id number] ng/mLFEU (0-500) H 12/27/16 21:12 - VTE Reasons for not Prescribing Prophylaxis: Not indicated-Anticoagulated or INR therapeutic Documentation of Mechanical Device: Graduated compression elastic hosiery Consult Discharge Plan - Plan Referrals: Isaac Kay DO [Resident] - 01/21/17 10:30 am Orquidea Vila MD [Partnered Physician] - 01/04/17 12:45 pm
[2016-12-30] MEDS: 0.9 % Sodium Chloride 1,000 ML IVC SCH ×2 (14:14→14:21)
[2016-12-31 05:13] LABS: Basophils % 0.3 %; Eosinophils # 0.2 K/mcL (0.0-0.6); Eosinophils % 3.4 %; Hemoglobin 12.3 g/dL (12.9-16.9); Immature Granulocytes % 0.3 % (0-4); Lymphocytes # 2.9 K/mcL (0.6-4.6); Lymphocytes % 40.7 %; Mean Corpuscular HGB Conc 31.5 g/dL (31.6-35.5); Mean Corpuscular Hemoglobin 26.8 pg (28.0-33.3); Mean Platelet Volume 13.2 fL (9.4-12.4); Monocytes # 0.5 K/mcL (0.0-1.3); Monocytes % 6.4 %; Neutrophils # 3.4 K/mcL (1.6-8.9); Platelet Count 129 K/mcL (140-400); Red Blood Count 4.59 M/mcL (4.19-5.50); Red Cell Distribution Width 14.2 % (11.5-14.5); Segmented Neutrophils % 48.9 %
[2016-12-31 05:14] LABS: BUN/Creatinine Ratio 12 (6-26); Blood Urea Nitrogen 13 mg/dL (8-26); Calcium 8.6 mg/dL (8.6-10.8); Carbon Dioxide 25 mEq/L (19-29); Chloride 109 mEq/L (98-109); Glucose 127 mg/dL (70-99); Osmolality,Calculated 292 (280-300); Sodium 140 mEq/L (136-145); eGFR For African Americans > 60 (> 60); eGFR For Non-African Americans > 60 (> 60)
[2016-12-31] MEDS: 0.9 % Sodium Chloride 1,000 ML IVC SCH (06:20)
[2016-12-31] MEDS: Insulin LISPRO 300 UNITS/3 ML VIAL SQ SCH ×4 (07:32→20:28)
[2016-12-31] MEDS: Beclomethasone 40mcg MDI IH SCH ×2 (08:06→22:25)
[2016-12-31] MEDS: Heparin 25,000 UNIT/500 ML D5W 25,000 UNIT/500 ML MLS IVC SCH (09:50)
--- NOTE | 2016-12-31 15:35 | Internal Med Progress Note ---
Date of Encounter: 12/31/16 Time of Encounter: 15:33 - Assessment and plan (1) Paroxysmal atrial fibrillation with rapid ventricular response Current Visit: Yes Status: Acute Assessment and plan: Presented with mild atrial fibrillation with RVR. Started initially on Cardizem drip, heart rate has stabilized, dc Cardizem drip. Cardiology following, started on metoprolol 25 bid. TTE 12/28/16 EF 55-60%, mild TR. As per cardiology, Rate control strategy is recommended with at least one month of anticoagulation before possible DCCV or starting antiarrythmic therapy. Patient has difficulty following INR appointments. Recommend Xarelto with PE dosing for AC consideration. Recommend heparin gtt while inpt given the extensive PEs with Xarelto PE dosing at discharge. (2) Acute respiratory failure with hypoxia Current Visit: Yes Status: Acute Assessment and plan: Acute respiratory failure secondary to extensive PE. Currently saturating well on 2-3 L oxygen. As discussed with cardiology, possible has right ventricular dysfunction due to extensive PE. However clinically improved and hemodynamically stable. Will continue treatment for acute PE and titrate oxygen to maintain saturation more than 95%. (3) Pulmonary embolism Current Visit: Yes Status: Acute Assessment and plan: Acute extensive bilateral PE. On heparin GTT. Xarelto PE dosing recommended given his hx of noncompliance with INR checks. Heparin gtt while inpt with Xarelto PE dosing at discharge 15mg BID x 21 days, then 20mg daily. Dr. Peñaloza spoke with IR physician (Dr. South) . He reported that based on the visual appearance of the thombi on the CT scan, that he would not be a good candidate for catheter-based intervention. patinet clinically better and hemodynamically stable, Continue heparin gtt. b/ l lower ext doppler negative for DVT. OOB to chair, watch for o2 desat on movement. not ready for PT/OT yet Qualifiers: Pulmonary embolism type: other Chronicity: acute Acute cor pulmonale presence: without acute cor pulmonale Qualified Code(s): I26.99 - Other pulmonary embolism without acute cor pulmonale (4) ZULEIMA (acute kidney injury) Current Visit: Yes Status: Acute Assessment and plan: improved, will monitor (5) Elevated troponin Current Visit: Yes Status: Resolved Assessment and plan: most likely 2/2 acute PE and demand ischemia - Subjective Interval history: Patient seen at the bedside, admitted for extensive PE. Lying in bed, no acute distress, denies any chest pain or shortness of breath. No leg swelling or cough pain, currently on heparin drip. - Constitutional Vitals: Temp Pulse Resp BP Pulse Ox 97.5 F L 88 16 122/70 95 12/31/16 11:20 12/31/16 11:20 12/31/16 11:20 12/31/16 11:20 12/31/16 11:20 General appearance: Present: A&O X 3, no acute distress Exam: neck- supple chest- b/l clear, no added sounds CVS-s1 and s2, no m/r/g abd-soft, non tender, bs are present ext- no edema neuro- no focal deficits Internal Medicine: Result - Labs CBC & Chem 7: 12/31/16 04:45 12/31/16 04:45 Labs: Short CBC 12/31/16 Range/Units 04:45 WBC 7.0 (4.3-11.1) K/mcL Hgb 12.3 L (12.9-16.9) g/dL Hct 39.0 (37.5-50.1) % Plt Count 129 L (140-400) K/mcL Neutrophils # 3.4 (1.6-8.9) K/mcL BMP 12/31/16 04:45 Sodium 140 Potassium 4.0 Chloride 109 Carbon Dioxide 25 BUN 13 Creatinine 1.08 Glucose 127 H Calcium 8.6 - ABG Interpretation ABG results: PT/INR, D-dimer PT 13.0 Seconds (9.4-12.1) H 12/27/16 21:12 D-Dimer [id number] ng/mLFEU (0-500) H 12/27/16 21:12 - VTE Reasons for not Prescribing Prophylaxis: Not indicated-Anticoagulated or INR therapeutic Documentation of Mechanical Device: Graduated compression elastic hosiery Consult Discharge Plan - Plan Referrals: Isaac Kay DO [Resident] - 01/21/17 10:30 am Orquidea Vila MD [Partnered Physician] - 01/04/17 12:45 pm
[2016-12-31] MEDS: *HR* OxyCODONE/APAP 10/325 TABLET PO PRN (20:24)
[2017-01-01] MEDS: Heparin 25,000 UNIT/500 ML D5W 25,000 UNIT/500 ML MLS IVC SCH ×2 (03:45→18:07)
[2017-01-01] MEDS: Beclomethasone 40mcg MDI IH SCH ×2 (07:53→22:42)
[2017-01-01] MEDS: Insulin LISPRO 300 UNITS/3 ML VIAL SQ SCH ×4 (08:16→20:54)
[2017-01-01] MEDS: *HR* OxyCODONE/APAP 10/325 TABLET PO PRN ×3 (08:35→17:38)
--- NOTE | 2017-01-01 11:09 | Internal Med Progress Note ---
Date of Encounter: 01/02/17 Time of Encounter: 11:06 - Assessment and plan (1) Diabetes 1.5, managed as type 2 Current Visit: Yes Status: Acute (2) Acute respiratory failure with hypoxia Current Visit: Yes Status: Acute (3) Atrial fibrillation with RVR Current Visit: Yes Status: Acute (4) Pulmonary embolism Current Visit: Yes Status: Acute Qualifiers: Pulmonary embolism type: other Chronicity: acute Acute cor pulmonale presence: without acute cor pulmonale Qualified Code(s): I26.99 - Other pulmonary embolism without acute cor pulmonale (5) DVT prophylaxis Current Visit: No Status: Acute - Subjective Interval history: Mr. Jaylen Dodge is a 46-year-old noncompliant patient presented with acute respiratory distress secondary to massive bilateral PE he also developed A. fib with RVR as a consequence due to increased right-sided pressures. Echocardiogram did not show any right sided systolic dysfunction and essentially LV ejection fraction was noted to be in normal range. he was started on IV heparin but now planned to switch to Xarelto upon discharge. He also has diabetes hypertension history of CVA and osteoarthritis of the hip. Patient is on 5-6 L and it seems like that his oxygen demand is quite tired right now. Otherwise he is asymptomatic but to we will wait until his oxygen demand comes down at which time he can be discharged home oxygen as needed. - Constitutional Vitals: Temp Pulse Resp BP Pulse Ox 97.9 F 90 14 143/94 94 01/01/17 07:48 01/01/17 08:40 01/01/17 07:55 01/01/17 07:48 01/01/17 08:40 General appearance: Present: A&O X 3, no acute distress Internal Medicine: Result - Labs CBC & Chem 7: 12/31/16 04:45 12/31/16 04:45 - ABG Interpretation ABG results: PT/INR, D-dimer PT 13.0 Seconds (9.4-12.1) H 12/27/16 21:12 D-Dimer [id number] ng/mLFEU (0-500) H 12/27/16 21:12 - VTE Reasons for not Prescribing Prophylaxis: Not indicated-Anticoagulated or INR therapeutic Documentation of Mechanical Device: Graduated compression elastic hosiery Consult Discharge Plan - Plan Referrals: Isaac Kay DO [Resident] - 01/21/17 10:30 am Jaylen Peñaloza MD [Partnered Physician] - 01/15/17 1:00 pm Orquidea Vila MD [Partnered Physician] - 02/08/17 10:45 am
[2017-01-02] MEDS: *HR* OxyCODONE/APAP 10/325 TABLET PO PRN ×2 (00:02→18:47)
[2017-01-02] MEDS: Insulin LISPRO 300 UNITS/3 ML VIAL SQ SCH ×4 (08:22→21:49)
[2017-01-02] MEDS: Beclomethasone 40mcg MDI IH SCH ×2 (09:58→22:10)
[2017-01-02] MEDS: Heparin 25,000 UNIT/500 ML D5W 25,000 UNIT/500 ML MLS IVC SCH (10:50)
[2017-01-02] MEDS: *HR* Rivaroxaban 15 MG TABLET PO SCH (18:00)
--- NOTE | 2017-01-02 19:02 | Internal Med Progress Note ---
Date of Encounter: 01/02/17 Time of Encounter: 19:00 - Assessment and plan (1) Diabetes 1.5, managed as type 2 Current Visit: Yes Status: Acute (2) Acute respiratory failure with hypoxia Current Visit: Yes Status: Acute (3) Atrial fibrillation with RVR Current Visit: Yes Status: Acute (4) Pulmonary embolism Current Visit: Yes Status: Acute Qualifiers: Pulmonary embolism type: other Chronicity: acute Acute cor pulmonale presence: without acute cor pulmonale Qualified Code(s): I26.99 - Other pulmonary embolism without acute cor pulmonale (5) DVT prophylaxis Current Visit: No Status: Acute - Subjective Interval history: Mr. Jaylen Dodge is a 46-year-old noncompliant patient presented with acute respiratory distress secondary to massive bilateral PE he also developed A. fib with RVR as a consequence due to increased right-sided pressures. Echocardiogram did not show any right sided systolic dysfunction and essentially LV ejection fraction was noted to be in normal range. he was started on IV heparin but now planned to switch to Xarelto upon discharge. He also has diabetes hypertension history of CVA and osteoarthritis of the hip. Patient is on 5-6 L and it seems like that his oxygen demand is quite tired right now. Otherwise he is asymptomatic but to we will wait until his oxygen demand comes down at which time he can be discharged home oxygen as needed. 01/02 patient looks much better today. His nasal oxygen is only at 2 L and lung examination is also better. I offered him to be discharged but he wants to leave in the morning. We will DC IV heparin and start him on Xarelto tonight. Causing leg guarding and the cognition provided. Options of this complication discussed at length. I did not see any evidence of pneumonia as he is afebrile and white count is normal. - Constitutional Vitals: Temp Pulse Resp BP Pulse Ox 97.4 F L 94 18 133/99 92 01/02/17 16:12 01/02/17 16:20 01/02/17 16:12 01/02/17 16:12 01/02/17 16:42 General appearance: Present: A&O X 3, no acute distress - Head Head exam: Present: atraumatic, normocephalic - Eye Eye exam: Present: PERRL, conjuntiva pink, sclera anicteric Pupils: Present: PERRL - Neck Neck exam general surgery: Present: supple, trachea midline. Absent: lymphadenopathy - Respiratory Respiratory exam: Present: CTAB. Absent: accessory muscle use, rales, rhonchi, wheezes - Cardiovascular Cardiovascular exam: Present: RRR, +S1, +S2. Absent: diastolic murmur, gallop, rubs, systolic murmur - GI/Abdominal GI/Abdominal exam: Present: normal bowel sounds, soft, no peritoneal signs. Absent: distended, tenderness - Extremities Exam Extremities exam: Present: warm, radial pulses palpable and symetrical. Absent : calf tenderness, cyanotic, pedal edema - Neurological Exam Neurological exam: Present: CN II-XII intact, oriented X3, no focal deficits. Absent: pronater drift, facial droop, speech deficit - Skin Skin exam: Present: dry, intact Internal Medicine: Result - Labs CBC & Chem 7: 12/31/16 04:45 12/31/16 04:45 - ABG Interpretation ABG results: PT/INR, D-dimer PT 13.0 Seconds (9.4-12.1) H 12/27/16 21:12 D-Dimer [id number] ng/mLFEU (0-500) H 12/27/16 21:12 - VTE Reasons for not Prescribing Prophylaxis: Not indicated-Anticoagulated or INR therapeutic Documentation of Mechanical Device: Graduated compression elastic hosiery Consult Discharge Plan - Plan Referrals: Isaac Kay DO [Resident] - 01/21/17 10:30 am Jaylen Peñaloza MD [Partnered Physician] - 01/15/17 1:00 pm Orquidea Vila MD [Partnered Physician] - 02/08/17 10:45 am
[2017-01-03] MEDS: *HR* OxyCODONE/APAP 10/325 TABLET PO PRN ×3 (00:25→14:45)
[2017-01-03] MEDS: *HR* Rivaroxaban 15 MG TABLET PO SCH (06:09)
[2017-01-03] MEDS: Beclomethasone 40mcg MDI IH SCH ×2 (07:59→19:44)
[2017-01-03] MEDS: Insulin LISPRO 300 UNITS/3 ML VIAL SQ SCH ×2 (08:50→11:19)
[2017-01-03 11:07] VITALS: BP 152/105
--- NOTE | 2017-01-03 13:18 | Discharge Summary ---
Date of Encounter: 01/03/17 Time of Encounter: 13:14 - Discharge Diagnosis (1) Diabetes 1.5, managed as type 2 Priority: Secondary Status: Acute (2) Acute respiratory failure with hypoxia Priority: Primary Status: Acute (3) Atrial fibrillation with RVR Priority: Primary Status: Acute (4) Pulmonary embolism Priority: Primary Status: Acute Qualifiers: Pulmonary embolism type: other Chronicity: acute Acute cor pulmonale presence: without acute cor pulmonale Qualified Code(s): I26.99 - Other pulmonary embolism without acute cor pulmonale (5) DVT prophylaxis Priority: Secondary Status: Acute (6) Hypertension Priority: Secondary Status: Acute Qualifiers: Hypertension type: essential hypertension Qualified Code(s): I10 - Essential (primary) hypertension - Discharge Medications Prescriptions: Metoprolol [Lopressor] 50 mg PO BID #60 tablet Rivaroxaban [Xarelto] 15 mg PO Q12H #38 tablet Home Medications: Albuterol Sulfate [Ventolin Hfa] 2 puff IH Q4H PRN 05/28/16 [History] Ammonium Lactate [Patricia-Hydrolac] 1 appl TP BID PRN 05/28/16 [History] Beclomethasone Diprop 40mcg [QVAR 40 mcg] 1 puff IH BID 05/28/16 [History] SUMAtriptan succinate [Imitrex] 50 mg PO DAILY PRN 05/28/16 [History] metFORMIN [Glucophage] 500 mg PO BIDWM 05/28/16 [History] Lisinopril [Zestril] 10 mg PO DAILY #30 tablet 06/04/16 [Rx] Pravastatin Sodium [Pravachol] 40 mg PO HS #30 tablet 06/04/16 [Rx] Metoprolol [Lopressor] 50 mg PO BID #60 tablet 01/03/17 [Rx] Rivaroxaban [Xarelto] 15 mg PO Q12H #38 tablet 01/03/17 [Rx] Allergies/Adverse Reactions: Allergies No Known Allergies Allergy (Verified 09/21/16 15:13) Date of admission: 12/27/16 22:56 Primary care physician: Michel Posada Consults: 12/28/16 06:40 Consult to Interventional Radiology [CONS] Stat Consulting Provider: Radiology Interventional Cols Reason for Consult: B/L pulmonary embolism Call Completed: No 12/28/16 11:32 Consult to Cardiology [CONS] Routine Comment: Consulting Provider: Cardiology Jessica Reason for Consult: please evaluate this patinet with h/o atrial fib not taking his meds at home(fleicanide,coumadin, BB) presented with b/l extensive PE for restarting his anti arrhythmic medications. thank you Call Completed: No Discharging clinician: Shannon Marrero Anticipated date of discharge: 01/03/17 - Patient Status Disposition: Home, Self-Care Condition: Fair Overall status at discharge: patient is progressing back to baseline - Discharge Instructions Follow Up With: Isaac Kay DO [Resident] - 01/21/17 10:30 am Jaylen Peñaloza MD [Partnered Physician] - 01/15/17 1:00 pm Orquidea Vila MD [Partnered Physician] - 02/08/17 10:45 am Forms: ED Satisfaction Letter - Diet and Activity Activity: increase activity as tolerated Diet: advance to your usual diet Hospital course: Mr. Jaylen Dodge is a 46-year-old noncompliant patient presented with acute respiratory distress secondary to massive bilateral PE shown on CT chest and leg ultrasound showed right-sided chronic DVT chronic DVT. he also developed A. fib with RVR as a consequence due to increased right-sided pressures. Echocardiogram did not show any right sided systolic dysfunction but increase pressures and essentially LV ejection fraction was noted to be in normal range. he was started on IV heparin but now planned to switch to Xarelto upon discharge. He also has diabetes hypertension history of CVA and osteoarthritis of the hip. patient looks much better today. His nasal oxygen is only at 2 L and lung examination is also better. I offered him to be discharged but he wants to leave in the morning. We will DC IV heparin and start him on Xarelto tonight. Causing leg guarding and the cognition provided. Options of this complication discussed at length. I did not see any evidence of pneumonia as he is afebrile and white count is normal. - Time Spent with Patient Total time spent providing and/or coordinating discharge services: Greater than 30 minutes - Constitutional Vitals: Temp Pulse Resp BP Pulse Ox 97.4 F L 85 16 152/105 90 01/03/17 11:05 01/03/17 11:34 01/03/17 11:05 01/03/17 11:05 01/03/17 11:05 General appearance: Present: A&O X 3, no acute distress - Head Head exam: Present: atraumatic, normocephalic - Eye Eye exam: Present: PERRL, conjuntiva pink, sclera anicteric Pupils: Present: PERRL - Neck Neck exam general surgery: Present: supple, trachea midline. Absent: lymphadenopathy - Respiratory Respiratory exam: Present: CTAB. Absent: accessory muscle use, rales, rhonchi, wheezes - Cardiovascular Cardiovascular exam: Present: RRR, +S1, +S2. Absent: diastolic murmur, gallop, rubs, systolic murmur - GI/Abdominal GI/Abdominal exam: Present: normal bowel sounds, soft, no peritoneal signs. Absent: distended, tenderness - Extremities Exam Extremities exam: Present: warm, radial pulses palpable and symetrical. Absent : calf tenderness, cyanotic, pedal edema - Neurological Exam Neurological exam: Present: CN II-XII intact, oriented X3, no focal deficits. Absent: pronater drift, facial droop, speech deficit - Skin Skin exam: Present: dry, intact - VTE Reasons for not Prescribing Prophylaxis: Not indicated-Anticoagulated or INR therapeutic Documentation of Mechanical Device: Graduated compression elastic hosiery
== END 2017-01-03 21:22 | disposition home or self-care (01) | DRG 134 ==
LOC: EMEROO 20:51 → 2NNU 22:56
PROVIDERS: ADMIT Internal Medicine; ATTEND Internal Medicine Endocrinology, Diabetes & Metabolism

== ENCOUNTER 2017-03-19 21:16 | Observation (INO) ==
[2017-03-19] MEDS ORDERED: 0.9 % Sodium Chloride 1,000 ML IVC ONE ×2 (21:35→23:08)
[2017-03-19 22:07] LABS: Basophils # 0.1 K/mcL (0.0-0.2); Basophils % 0.4 %; Eosinophils # 0.3 K/mcL (0.0-0.6); Eosinophils % 2.1 %; Hematocrit 51.6 % (37.5-50.1); Hemoglobin 16.2 g/dL (12.9-16.9); Immature Granulocytes % 0.3 % (0-4); Immature Platelets 15.3 % (1.1-6.1); Lymphocytes # 3.3 K/mcL (0.6-4.6); Lymphocytes % 23.7 %; Mean Corpuscular HGB Conc 31.4 g/dL (31.6-35.5); Mean Corpuscular Hemoglobin 26.1 pg (28.0-33.3); Mean Corpuscular Volume 83.1 fL (83.0-100.0); Mean Platelet Volume 12.3 fL (9.4-12.4); Monocytes # 1.1 K/mcL (0.0-1.3); Neutrophils # 9.1 K/mcL (1.6-8.9); Platelet Count 243 K/mcL (140-400); Red Blood Count 6.21 M/mcL (4.19-5.50); Red Cell Distribution Width 13.9 % (11.5-14.5); Segmented Neutrophils % 65.5 %
[2017-03-19 22:21] LABS: Alanine Aminotransferase 24 Units/L (0-55); Albumin 3.7 g/dL (3.5-5.0); Albumin/Globulin Ratio 0.9 (1.1-2.2); Alkaline Phosphatase 85 Units/L (38-126); Aspartate Amino Transferase 21 Units/L (5-34); BUN/Creatinine Ratio 15 (6-26); Bilirubin,Total 0.6 mg/dL (0.2-1.2); Blood Urea Nitrogen 19 mg/dL (8-26); Calcium 9.4 mg/dL (8.6-10.8); Carbon Dioxide 24 mEq/L (19-29); Chloride 104 mEq/L (98-109); Globulin 3.9 g/dL (2.4-3.5); Glucose 86 mg/dL (70-99); Osmolality,Calculated 290 (280-300); Potassium 3.5 mEq/L (3.5-4.5); Sodium 139 mEq/L (136-145); Total Protein 7.6 g/dL (6.0-8.3); eGFR For African Americans > 60 (> 60); eGFR For Non-African Americans > 60 (> 60)
[2017-03-19] MEDS ORDERED: *HR* OxyCODONE/APAP 10/325 TABLET PO ONE (23:14)
--- NOTE | 2017-03-19 23:45 | Emergency Department Note ---
Disposition Clinical Impression: Dehydration, Afib Disposition: Home, Self-Care Condition: Good Time of Disposition: 23:47 Dizziness HPI - General Chief Complaint: ED Dizziness Stated Complaint: rex dizziness fever nausea Time Seen by Provider: 03/19/17 21:24 Source: patient Limitations: no limitations Nursing Notes Reviewed: Yes Vital Signs Reviewed: Yes - History of Present Illness HPI Narrative: 46-year-old male presents emergency department for concerns of lightheadedness and near syncope. Patient states he has been having nausea, vomiting, diarrhea over the past few days. Patient's significant other is sick with similar symptoms. Patient states that he has a history of paroxysmal atrial fibrillation, he is usually in a normal sinus rhythm however he occasionally develops atrial fibrillation. He is currently taking Xarelto and metoprolol 50 mg twice a day. Patient states he missed 2-3 days of his Xarelto about 2 weeks ago however he denies focal neurologic deficits or abdominal pain or any other acute symptoms associated with embolization. He has not missed any of his anticoagulation doses over the past 2 weeks. Patient states he felt lightheaded however he did not syncopized. Patient denies chest pain. He denies abdominal pain, hematuria or allergies or melena. - Related Data Home Medications Medication Instructions Recorded Confirmed Albuterol Sulfate [Ventolin Hfa] 2 puff IH Q4H PRN 05/28/16 12/27/16 Ammonium Lactate [Patricia-Hydrolac] 1 appl TP BID PRN 05/28/16 12/27/16 Beclomethasone Diprop 40mcg [QVAR 1 puff IH BID 05/28/16 12/27/16 40 mcg] SUMAtriptan succinate [Imitrex] 50 mg PO DAILY PRN 05/28/16 12/27/16 metFORMIN [Glucophage] 500 mg PO BIDWM 05/28/16 12/27/16 Previous Rx's Medication Instructions Recorded Lisinopril [Zestril] 10 mg PO DAILY #30 tablet 06/04/16 Pravastatin Sodium [Pravachol] 40 mg PO HS #30 tablet 06/04/16 Metoprolol [Lopressor] 50 mg PO BID #60 tablet 01/03/17 Rivaroxaban [Xarelto] 15 mg PO Q12H #38 tablet 01/03/17 Allergies Allergy/AdvReac Type Severity Reaction Status Date / Time No Known Allergies Allergy Verified 03/19/17 21:25 All systems ED: reviewed and negative except as stated. Review of Systems: As Per HPI Constitutional: Reports: fever (Subjective) Cardiovascular: Reports: palpitations. Denies: chest pain Gastrointestinal: Reports: nausea, vomiting, diarrhea. Denies: abdominal pain Past Medical History - Past Medical History Attestation: Yes The following information was validated with the patient. Source: patient Medical history: Reports: arthritis, asthma, atrial fibrillation, diabetes, hyperlipidemia, hypertension, pulmonary embolus, renal disease, TIA Surgical history: Reports: non-contributory, other Psychiatric history: Reports: anxiety, PTSD - Social History Smoking Status: Never smoker Smokeless Tobacco Status: No Alcohol use: Reports: none Drug use: Reports: none Physical Exam General: Alert and in no acute distress Skin: Warm, dry, intact Head: Normocephalic and atraumatic Neck: Supple, trachea midline and no tenderness Cardiovascular: Irregularly irregular, tachycardia, no murmur, normal perfusion Respiratory: CTAB, no wheezing, cough, or respiratory distress Musculoskeletal: Normal strength, no tenderness, swelling or deformity GI: Soft, nontender, nondistended. Bowel sounds present Neuro: A&O to person, place, time and situation. No focal deficits noted on exam Psychiatric: cooperative and appropriate mood and affect. - General Limitations: no limitations General appearance: alert, in no apparent distress Course Vital Signs Temperature 97.9 F 03/19/17 21:25 Pulse Rate 147 03/19/17 21:25 Respiratory Rate 18 03/19/17 21:25 Blood Pressure 123/78 03/19/17 21:25 O2 Sat by Pulse Oximetry 95 03/19/17 21:25 Temperature 0 F L 03/19/17 23:34 Pulse Rate 96 03/19/17 23:34 Respiratory Rate 16 03/19/17 23:34 Blood Pressure 116/82 03/19/17 23:34 O2 Sat by Pulse Oximetry 98 03/19/17 23:34 Oxygen Delivery Oxygen Delivery Room Air Dizziness - MDM Narrative Medical decision making narrative: Patient continues to feel lightheaded with ambulation and exertion. Patient does not feel comfortable to return home. He will be admitted for symptomatic atrial fibrillation. - Medical Records Medical records reviewed: Yes I reviewed the patient's medical records. - Lab Data Lab results reviewed: Yes I reviewed the patient's lab results. Result diagrams: 03/19/17 22:00 03/19/17 22:00 Lab Results 03/19/17 03/19/17 03/19/17 Range/Units 22:00 22:00 22:00 WBC 13.9 H (4.3-11.1) K/mcL RBC 6.21 H (4.19-5.50) M/mcL Hgb 16.2 (12.9-16.9) g/dL Hct 51.6 H (37.5-50.1) % MCV 83.1 (83.0-100.0) fL MCH 26.1 L (28.0-33.3) pg MCHC 31.4 L (31.6-35.5) g/dL RDW 13.9 (11.5-14.5) % Plt Count 243 (140-400) K/mcL MPV 12.3 (9.4-12.4) fL Immature Gran % 0.3 (0-4) % Seg Neutrophils % 65.5 % Lymphocytes % 23.7 % Monocytes % 8.0 % Eosinophils % 2.1 % Basophils % 0.4 % Neutrophils # 9.1 H (1.6-8.9) K/mcL Lymphocytes # 3.3 (0.6-4.6) K/mcL Monocytes # 1.1 (0.0-1.3) K/mcL Eosinophils # 0.3 (0.0-0.6) K/mcL Basophils # 0.1 (0.0-0.2) K/mcL Immature Plt Fraction 15.3 H (1.1-6.1) % Sodium 139 (136-145) mEq/L Potassium 3.5 (3.5-4.5) mEq/L Chloride 104 (98-109) mEq/L Carbon Dioxide 24 (19-29) mEq/L BUN 19 (8-26) mg/dL Creatinine 1.26 H (0.72-1.25) mg/dL Est GFR ( Amer) > 60 (> 60) Est GFR (Non-Af Amer) > 60 (> 60) BUN/Creatinine Ratio 15 (6-26) Glucose 86 (70-99) mg/dL Calculated Osmolality 290 (280-300) Calcium 9.4 (8.6-10.8) mg/dL Total Bilirubin 0.6 (0.2-1.2) mg/dL AST 21 (5-34) Units/L ALT 24 (0-55) Units/L Alkaline Phosphatase 85 (38-126) Units/L Troponin I 0.00 (0-0.03) ng/mL Serum Total Protein 7.6 (6.0-8.3) g/dL Albumin 3.7 (3.5-5.0) g/dL Globulin 3.9 H (2.4-3.5) g/dL Albumin/Globulin Ratio 0.9 L (1.1-2.2) - Radiology Data Radiology results reviewed: Yes I reviewed the patient's radiology results. - EKG Data EKG attestation: Yes I reviewed and interpreted this EKG. EKG results narrative: ECG - interpreted by ED physician. Rate 131 intrafibrillation with a rapid ventricular response without evidence of STEMI.
[2017-03-20] MEDS ORDERED: *HR* Rivaroxaban 15 MG TABLET PO STA (01:12)
[2017-03-20] MEDS ORDERED: Ondansetron 4 MG/2 ML VIAL IVP PRN (01:41)
[2017-03-20] MEDS ORDERED: Naloxone 0.4 MG/ML INJ IVP PRN (01:41)
[2017-03-20] MEDS: 0.9 % Sodium Chloride 1,000 ML IVC SCH (02:05)
[2017-03-20] MEDS ORDERED: Dextrose Gel 15 GM PO PRN ×2 (06:12)
[2017-03-20] MEDS ORDERED: D5% in Water 1,000 ML IVC PRN (06:12)
[2017-03-20] MEDS ORDERED: *HR* Dextrose 50 % in Water (Syg) 50 ML SYRINGE IVP PRN (06:12)
[2017-03-20] MEDS ORDERED: *HR* Rivaroxaban 10 MG TABLET PO SCH ×3 (06:15→17:00)
--- NOTE | 2017-03-20 06:18 | Internal Med History&Physical ---
Date of Encounter: 03/20/17 Time of Encounter: 01:10 Assessment and Plan (1) PAF (paroxysmal atrial fibrillation) Current visit: No Status: Acute Rate currently controlled with BB, will continue Anticoagulated with Xarelto Hold BB if SBP<100 continue tele monitoring (2) Hypertension Current visit: No Status: Acute BP within acceptable range continue home medications hold antihypertensives if SBP<100 closely monitor BP Qualifiers: Hypertension type: essential hypertension Qualified Code(s): I10 - Essential (primary) hypertension (3) Pulmonary embolism Current visit: No Status: Chronic continue Xarelto BID Qualifiers: Pulmonary embolism type: other Chronicity: chronic Acute cor pulmonale presence: without acute cor pulmonale Qualified Code(s): I27.82 - Chronic pulmonary embolism (4) Leucocytosis Current visit: No Status: Acute likely reactive secondary to recent viral illness afebrile and denies any dysuria, cough, fever, or chills will monitor off abx at this time Qualifiers: Leukocytosis type: unspecified Qualified Code(s): D72.829 - Elevated white blood cell count, unspecified (5) Dehydration Current visit: Yes Status: Acute likely secondary to recent viral illness continue IV fluids advance diet as tolerated Zofran prn n/v (6) DVT prophylaxis Current visit: No Status: Acute Internal Medicine - H&P: HPI Chief complaint: abnormal heart rate, lightheadedness Admitted From: Home Plans for Post Hospital Care: Home History of present illness: Mr. Dodge is a 46 year old male with PMH of Afib and PE on anticoagulation, DM who presented to the ER for management of lightheadedness and abnormal heart rate. Patient reported of having nausea, vomiting, diarrhea for the last few days with decrease in PO intake secondary to a viral illness he caught from his . He states he has history of afib but his rate is usually controlled, however he woke up feeling lightheaded with elevated HR which was not controlled with his home medications due to which he came to the ER. He was found to have afib with rvr. He was given PO metoprolol, which provided appropriate rate control. He is currently on Xarelto twice a day for recently diagnosed PE. Even though his HR was controlled, he still felt weak due to which he requested to stay overnight. Pt denies any headache, chest pain, dizziness, sob, abd pain, n/v, fever or chills during my evaluation. Social History: Never smoker Code status: Full code Past Med Surg Social Fam HX - Past Medical History Medical history: arthritis, asthma, atrial fibrillation, diabetes, hyperlipidemia, hypertension, pulmonary embolus, renal disease, TIA Psychiatric history: anxiety, PTSD - Past Surgical History Surgical History: non-contributory, other - Social History Smoking Status: Never smoker Smokeless Tobacco Status: No Alcohol use: none Drug use: none - Family History Sister Hx Family Cancer: Yes (Thyroid cancer) Internal Medicine - H&P: Meds Albuterol Sulfate [Ventolin Hfa] 2 puff IH Q4H PRN 05/28/16 [History] Ammonium Lactate [Patricia-Hydrolac] 1 appl TP BID PRN 05/28/16 [History] Beclomethasone Diprop 40mcg [QVAR 40 mcg] 1 puff IH BID 05/28/16 [History] SUMAtriptan succinate [Imitrex] 50 mg PO DAILY PRN 05/28/16 [History] metFORMIN [Glucophage] 500 mg PO BIDWM 05/28/16 [History] Lisinopril [Zestril] 10 mg PO DAILY #30 tablet 06/04/16 [Rx] Pravastatin Sodium [Pravachol] 40 mg PO HS #30 tablet 06/04/16 [Rx] Metoprolol [Lopressor] 50 mg PO BID #60 tablet 01/03/17 [Rx] Rivaroxaban [Xarelto] 20 mg PO Q12H 03/20/17 [History] 3 Allergy/AdvReac Type Severity Reaction Status Date / Time No Known Allergies Allergy Verified 03/19/17 21:25 All Systems PM: A 10-system review of systems was performed and is negative for pertinent findings except as documented above in the HPI. - Constitutional Constitutional: as per HPI - Constitutional Vitals: Temp Pulse Resp BP Pulse Ox 98.9 F 92 18 101/86 95 03/20/17 01:41 03/20/17 01:41 03/20/17 01:41 03/20/17 01:41 03/20/17 01:41 General appearance: Present: A&O X 3, no acute distress, obese, answers questions appropriately - Head Head exam: Present: atraumatic, normocephalic - Eye Eye exam: Present: conjuntiva pink, sclera anicteric - Respiratory Respiratory exam: Absent: respiratory distress, wheezes - Cardiovascular Cardiovascular exam: Present: irregular rhythm, +S1, +S2 - GI/Abdominal GI/Abdominal exam: Present: normal bowel sounds, soft, no peritoneal signs. Absent: distended, tenderness - Extremities Exam Extremities exam: Present: warm, radial pulses palpable and symmetrical. Absent : calf tenderness, cyanotic, pedal edema - Neurological Exam Neurological exam: Present: alert, oriented X3 - Psychiatric Psychiatric exam: Present: normal affect, normal mood Internal Med - H&P Results - Labs CBC & Chem 7: 03/19/17 22:00 03/19/17 22:00
[2017-03-20] MEDS: Insulin LISPRO 300 UNITS/3 ML VIAL SQ SCH ×3 (07:23→17:43)
[2017-03-20 10:03] LABS: Basophils % 0.4 %; Eosinophils # 0.3 K/mcL (0.0-0.6); Eosinophils % 3.5 %; Hematocrit 45.5 % (37.5-50.1); Immature Granulocytes % 0.1 % (0-4); Lymphocytes % 32.4 %; Mean Corpuscular HGB Conc 31.4 g/dL (31.6-35.5); Mean Corpuscular Hemoglobin 26.7 pg (28.0-33.3); Mean Corpuscular Volume 84.9 fL (83.0-100.0); Mean Platelet Volume 12.2 fL (9.4-12.4); Monocytes # 0.8 K/mcL (0.0-1.3); Monocytes % 8.6 %; Neutrophils # 5.1 K/mcL (1.6-8.9); Platelet Count 169 K/mcL (140-400); Red Blood Count 5.36 M/mcL (4.19-5.50); Red Cell Distribution Width 13.9 % (11.5-14.5)
[2017-03-20 10:05] LABS: Hemoglobin 14.3 g/dL (12.9-16.9)
--- NOTE | 2017-03-20 10:09 | Electrocardiograph Report ---
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
[2017-03-20 10:16] LABS: Alanine Aminotransferase 20 Units/L (0-55); Albumin 3.1 g/dL (3.5-5.0); Alkaline Phosphatase 67 Units/L (38-126); Aspartate Amino Transferase 18 Units/L (5-34); BUN/Creatinine Ratio 16 (6-26); Bilirubin,Total 0.5 mg/dL (0.2-1.2); Blood Urea Nitrogen 16 mg/dL (8-26); Calcium 8.3 mg/dL (8.6-10.8); Carbon Dioxide 25 mEq/L (19-29); Chloride 106 mEq/L (98-109); Globulin 3.2 g/dL (2.4-3.5); Glucose 142 mg/dL (70-99); Magnesium 1.9 mg/dL (1.6-2.6); Osmolality,Calculated 296 (280-300); Phosphorous 3.7 mg/dL (2.3-4.7); Potassium 3.8 mEq/L (3.5-4.5); Total Protein 6.3 g/dL (6.0-8.3); eGFR For African Americans > 60 (> 60); eGFR For Non-African Americans > 60 (> 60)
[2017-03-20 10:21] LABS: Sodium 141 mEq/L (136-145)
[2017-03-20 10:39] LABS: Bilirubin,Urine Negative (Negative); Blood,Urine Negative (Negative); Clarity,Urine Clear (Clear); Color,Urine Yellow (Yellow); Glucose,Urine (UA) Normal (Normal); Ketones,Urine Negative (Negative); Leukocyte Esterase,Urine Small (Negative); Nitrite,Urine Negative (Negative); Protein,Urine Negative (Neg-Trace); Specific Gravity,Urine 1.023 (1.010-1.025); Urobilinogen,Urine Normal (Normal)
[2017-03-20 10:42] LABS: Bacteria,Urine None Seen per hpf (None-Few); Hyaline Casts,Urine None Seen per lpf (None-Few); Squamous Epithelial Cell,Urine Many per lpf (None-Few); WBC,Urine 30-50 per hpf (0-3)
[2017-03-20] MEDS: *HR* OxyCODONE/APAP 10/325 TABLET PO PRN ×2 (12:42→21:37)
[2017-03-21] MEDS: 0.9 % Sodium Chloride 1,000 ML IVC SCH (03:40)
[2017-03-21 07:18] VITALS: BP 149/94
[2017-03-21] MEDS: *HR* OxyCODONE/APAP 10/325 TABLET PO PRN (08:34)
[2017-03-21] MEDS: Insulin LISPRO 300 UNITS/3 ML VIAL SQ SCH (08:37)
--- NOTE | 2017-03-21 10:51 | Discharge Summary ---
Date of Encounter: 03/21/17 Time of Encounter: 10:49 - Discharge Diagnosis (1) Atrial fibrillation with RVR Priority: Primary Status: Acute (2) Leucocytosis Priority: Primary Status: Acute Qualifiers: Leukocytosis type: unspecified Qualified Code(s): D72.829 - Elevated white blood cell count, unspecified (3) Dehydration Priority: Primary Status: Acute (4) Diabetes mellitus Priority: Secondary Status: Chronic Qualifiers: Diabetes mellitus type: type 2 Diabetes mellitus complication status: with unspecified complications Diabetes mellitus mcfp insulin use: without long term care pharmacist use Qualified Code(s): E11.8 - Type 2 diabetes mellitus with unspecified complications (5) Hypertension Priority: Secondary Status: Chronic Qualifiers: Hypertension type: essential hypertension Qualified Code(s): I10 - Essential (primary) hypertension (6) Pulmonary embolism Priority: Secondary Status: Chronic Qualifiers: Pulmonary embolism type: other Chronicity: chronic Acute cor pulmonale presence: without acute cor pulmonale Qualified Code(s): I27.82 - Chronic pulmonary embolism - Discharge Medications Home Medications: Albuterol Sulfate [Ventolin Hfa] 2 puff IH Q4H PRN 05/28/16 [History] Ammonium Lactate [Patricia-Hydrolac] 1 appl TP BID PRN 05/28/16 [History] Beclomethasone Diprop 40mcg [QVAR 40 mcg] 1 puff IH BID 05/28/16 [History] Atorvastatin [Lipitor] 40 mg PO HS 03/20/17 [History] Metoprolol [Lopressor] 100 mg PO BID 03/20/17 [History] Oxycodone HCl/Acetaminophen [Percocet 10-325 mg Tablet] 1 tab PO Q6H PRN [History] Rivaroxaban [Xarelto] 20 mg PO DAILY 03/20/17 [History] Allergies/Adverse Reactions: 3 Allergy/AdvReac Type Severity Reaction Status Date / Time No Known Allergies Allergy Verified 03/19/17 21:25 Date of admission: 03/20/17 01:22 Primary care physician: PCP NONE Consults: 03/20/17 18:48 Consult to Occupational Therapy [CONS] Routine Comment: Evaluate, develop and implement POC Reason for Consult: weakness Consult to Physical Therapy [CONS] Routine Comment: Evaluate, develop and implement POC Reason for Consult: weakness Consult to Chucking Lathe Operator [CONS] Routine Reason for SW Consult: discharge Discharging clinician: Roxy Hung Anticipated date of discharge: 03/21/17 - Patient Status Disposition: Home, Self-Care Condition: Good Functional capacity at discharge: uses cane/walker Overall status at discharge: patient is progressing back to baseline - Discharge Instructions Follow Up With: Hayder Castelan DO [Resident] - 03/25/17 3:20 pm ( ) NONE,PCP [Primary Care Provider] - Additional Instructions: F/up with PCP in 1-2 weeks - Diet and Activity Activity: resume usual activities as tolerated Diet: diabetic diet, low fat, low cholesterol, low salt diet Hospital course: Mr. Dodge is a 46 year old male with the above medical problems, who was admitted with palpitations, dizziness and near syncope. He was noted to have atrial fibrillation with rapid ventricular response in the emergency room, which quickly responded to home dose of oral metoprolol and has been stable since then. Patient was also noted to have mild dehydration and acute kidney injury due to a recent bout of possible viral gastroenteritis. He received IV hydration with improvement in leukocytosis and serum creatinine. Physical and occupational therapy evaluation was completed and patient is noted to be at his baseline and he feels significantly better today and is medically stable for discharge. - Time Spent with Patient Total time spent providing and/or coordinating discharge services: Greater than 30 minutes (40 min) - Constitutional Vitals: Temp Pulse Resp BP Pulse Ox 98.1 F 90 20 149/94 95 03/21/17 07:17 03/21/17 07:17 03/21/17 07:17 03/21/17 07:17 03/21/17 07:17 General appearance: Present: A&O X 3, obese, answers questions appropriately - Respiratory Respiratory exam: Present: CTAB. Absent: accessory muscle use, rales, rhonchi, wheezes - Cardiovascular Cardiovascular exam: Present: irregular rhythm, +S1, +S2. Absent: diastolic murmur, gallop, rubs, systolic murmur
== END 2017-03-21 14:46 | disposition home or self-care (01) ==
LOC: EMEROO 21:16 → 2NENU 21:16 → SUATTDRO 03-20 01:22 → 2NENU 03-20 06:47 → 3BNU 03-20 11:09
PROVIDERS: ADMIT Internal Medicine; ATTEND Internal Medicine

== ENCOUNTER 2017-06-25 21:36 | Inpatient (IN) ==
[2017-06-25] MEDS ORDERED: *HR* Metoprolol 5 MG/5 ML VIAL IVP ONE (22:31)
[2017-06-25] MEDS ORDERED: 0.9 % Sodium Chloride 1,000 ML IVC ONE (22:35)
[2017-06-25 22:44] LABS: Basophils % 0.3 %; Eosinophils # 0.1 K/mcL (0.0-0.6); Eosinophils % 0.7 %; Hematocrit 52.7 % (37.5-50.1); Hemoglobin 16.4 g/dL (12.9-16.9); Immature Granulocytes % 0.4 % (0-4); Lymphocytes # 2.3 K/mcL (0.6-4.6); Lymphocytes % 17.4 %; Mean Corpuscular HGB Conc 31.1 g/dL (31.6-35.5); Mean Corpuscular Hemoglobin 26.6 pg (28.0-33.3); Mean Corpuscular Volume 85.6 fL (83.0-100.0); Mean Platelet Volume 12.2 fL (9.4-12.4); Monocytes # 0.2 K/mcL (0.0-1.3); Monocytes % 1.8 %; Neutrophils # 10.6 K/mcL (1.6-8.9); Platelet Count 292 K/mcL (140-400); Red Blood Count 6.16 M/mcL (4.19-5.50); Segmented Neutrophils % 79.4 %
[2017-06-25 23:03] LABS: Albumin 4.6 g/dL (3.5-5.7); Albumin/Globulin Ratio 1.5 (1.1-2.2); Bilirubin,Total 0.6 mg/dL (0.3-1.0); Calcium 9.6 mg/dL (8.6-10.3); Potassium 3.6 mEq/L (3.5-5.1); Total Protein 7.6 g/dL (6.4-8.9)
[2017-06-25] MEDS ORDERED: cefTRIAXone 1,000 MG in Water for inj. (sterile) 20 ML 10 ML IVP ONE (23:38)
[2017-06-25 23:39] LABS: Bilirubin,Urine Small (Negative); Blood,Urine Negative (Negative); Clarity,Urine Turbid (Clear); Color,Urine Dark Yellow (Yellow); Glucose,Urine (UA) Normal (Normal); Ketones,Urine Trace mg/dL (Negative); Leukocyte Esterase,Urine Moderate (Negative); Nitrite,Urine Positive (Negative); PH,Urine 5.5 pH Units (5.0-8.0); Protein,Urine 100 mg/dL (Neg-Trace); Specific Gravity,Urine 1.025 (1.010-1.025); Urobilinogen,Urine Normal (Normal)
[2017-06-25 23:40] LABS: Bacteria,Urine Many per hpf (None-Few); Squamous Epithelial Cell,Urine Many per lpf (None-Few); WBC,Urine TNTC per hpf (0-3)
[2017-06-25 23:52] LABS: Hyaline Casts,Urine Few per lpf (None-Few)
[2017-06-26 00:18] LABS: Bilirubin,Direct 0.1 mg/dL (0.0-0.2); Bilirubin,Indirect 0.5 mg/dL (0.0-1.2); Phosphorous 3.7 mg/dL (2.7-4.5)
[2017-06-26] MEDS: 0.9 % Sodium Chloride 1,000 ML IVC SCH ×5 (01:07→21:20)
[2017-06-26] MEDS ORDERED: *HR* Rivaroxaban 15 MG TABLET PO STA (01:47)
[2017-06-26] MEDS ORDERED: *HR* OxyCODONE/APAP 10/325 TABLET PO ONE (01:48)
--- NOTE | 2017-06-26 05:21 | Emergency Department Note ---
Disposition Clinical Impression: Lactic acidosis UTI (urinary tract infection) Qualifiers: Urinary tract infection type: site unspecified Hematuria presence: with hematuria Qualified Code(s): N39.0 - Urinary tract infection, site not specified ; R31.9 - Hematuria, unspecified; R31.9 - Hematuria, unspecified Disposition: Admitted As Inpatient General Adult HPI - General Chief complaint: ED General Medical Stated complaint: Back pain/abnormal urine/afib concern Source: patient Limitations: no limitations Nursing Notes Reviewed: Yes Vital Signs Reviewed: Yes - History of Present Illness HPI Narrative: This is a 38-year-old male who has a history of chronic urinary tract infection , presenting today with concern for A. fib with RVR as well as weakness and urinary symptoms. He has no history of abdominal surgeries. He admits that they cannot identify the cause why he keeps getting urinary tract infections. He notes that he developed an odor to his urine and that suggested to him that he had UTI. Patient has A. fib with RVR on arrival. History of A. fib. Any quite early withdrawal to. Now with complains of weakness accompanied by UTI. General: No acute distress HEENT: Pupils equal and reactive to light, extraoccular muscle movement is normal, TMS are clear bilaterally. Heart: Irregular rate and rythm Lungs: lungs clear, no wheezing, rales or ronchi. ABD: SNT, no focal areas or tenderness, no guarding or rebound tenderness. Extremities: No cyanosis, clubbing or edema Neuro: CN 2-12 in tact, no focal deficit. strength 5/5. Medical decision making Findings consistent with urinary tract infection, lactic acidosis, A. fib with RVR. I do suspect his A. fib is worsened by possible early sepsis. The patient was started on ceftriaxone, blood cultures were obtained. Lactate was repeated and did clear with IV fluids. Heart rate did appropriately come down with metoprolol as well as IV fluids. Patient will be admitted for further evaluation of UTI in the setting of A. fib with RVR. I spent greater than 35 minutes of critical care time resuscitating this ilial patient suffering from UTI. This is excluding billable procedures. Pain Scale: 2 - Related Data Home Medications Medication Instructions Recorded Confirmed Albuterol Sulfate [Ventolin Hfa] 2 puff IH Q4H PRN 05/28/16 03/20/17 Ammonium Lactate [Patricia-Hydrolac] 1 appl TP BID PRN 05/28/16 03/20/17 Beclomethasone Diprop 40mcg [QVAR 1 puff IH BID 05/28/16 03/20/17 40 mcg] Atorvastatin [Lipitor] 40 mg PO HS 03/20/17 03/20/17 Metoprolol [Lopressor] 100 mg PO BID 03/20/17 03/20/17 Oxycodone HCl/Acetaminophen 1 tab PO Q6H PRN 03/20/17 03/20/17 [Percocet 10-325 mg Tablet] Rivaroxaban [Xarelto] 20 mg PO DAILY 03/20/17 03/20/17 Allergies Allergy/AdvReac Type Severity Reaction Status Date / Time No Known Allergies Allergy Verified 06/25/17 21:38 All systems ED: reviewed and negative except as stated. Review of Systems: As Per HPI Past Medical History - Past Medical History Medical history: Reports: arthritis, asthma, atrial fibrillation, diabetes, hyperlipidemia, hypertension, pulmonary embolus, renal disease, TIA Surgical history: Reports: non-contributory, other Psychiatric history: Reports: anxiety, PTSD - Social History Smoking Status: Never smoker Smokeless Tobacco Status: No Alcohol use: Reports: none Drug use: Reports: none Physical Exam - General Limitations: no limitations General appearance: alert, in no apparent distress Course Vital Signs Temperature 0 F L 06/25/17 21:38 Pulse Rate 100 06/25/17 21:38 Respiratory Rate 18 06/25/17 21:38 Blood Pressure 118/63 06/25/17 21:38 O2 Sat by Pulse Oximetry 95 06/25/17 21:38 Temperature 97.3 F L 06/26/17 03:43 Pulse Rate 95 06/26/17 03:43 Respiratory Rate 16 06/26/17 03:43 Blood Pressure 112/69 06/26/17 03:43 O2 Sat by Pulse Oximetry 95 06/26/17 03:43 Oxygen Delivery Oxygen Delivery Room Air Medical Decision Making - Lab Data Result diagrams: 06/25/17 22:14 06/25/17 22:14 Lab Results 06/25/17 06/25/17 06/25/17 Range/Units 22:14 22:14 22:14 WBC 13.4 H (4.3-11.1) K/mcL RBC 6.16 H (4.19-5.50) M/mcL Hgb 16.4 (12.9-16.9) g/dL Hct 52.7 H (37.5-50.1) % MCV 85.6 (83.0-100.0) fL MCH 26.6 L (28.0-33.3) pg MCHC 31.1 L (31.6-35.5) g/dL RDW 16.0 H (11.5-14.5) % Plt Count 292 (140-400) K/mcL MPV 12.2 (9.4-12.4) fL Immature Gran % 0.4 (0-4) % Seg Neutrophils % 79.4 % Lymphocytes % 17.4 % Monocytes % 1.8 % Eosinophils % 0.7 % Basophils % 0.3 % Neutrophils # 10.6 H (1.6-8.9) K/mcL Lymphocytes # 2.3 (0.6-4.6) K/mcL Monocytes # 0.2 (0.0-1.3) K/mcL Eosinophils # 0.1 (0.0-0.6) K/mcL Basophils # 0.0 (0.0-0.2) K/mcL APTT (26.0-36.0) Seconds Sodium 138 (136-145) mEq/L Potassium 3.6 (3.5-5.1) mEq/L Chloride 101 (98-107) mEq/L Carbon Dioxide 24 (23-29) mEq/L BUN 24 H (6-20) mg/dL Creatinine 1.61 H (0.70-1.30) mg/dL Est GFR ( Amer) 56 L (> 60) Est GFR (Non-Af Amer) 46 L (> 60) BUN/Creatinine Ratio 15 (6-26) Glucose 160 H (70-105) mg/dL Calculated Osmolality 293 (280-300) Lactic Acid 4.7 H* (0.5-2.2) mmol/L Calcium 9.6 (8.6-10.3) mg/dL Phosphorus 3.7 (2.7-4.5) mg/dL Magnesium 2.0 (1.6-2.6) mg/dL Total Bilirubin 0.6 (0.3-1.0) mg/dL Direct Bilirubin 0.1 (0.0-0.2) mg/dL Indirect Bilirubin 0.5 (0.0-1.2) mg/dL AST 17 (13-39) Units/L ALT 19 (7-52) Units/L Alkaline Phosphatase 77 (34-104) Units/L Troponin I (< 0.04) ng/mL B-Natriuretic Peptide (Less than 100) pg/mL Serum Total Protein 7.6 (6.4-8.9) g/dL Albumin 4.6 (3.5-5.7) g/dL Globulin 3.0 (2.4-3.5) g/dL Albumin/Globulin Ratio 1.5 (1.1-2.2) Urine Color (Yellow) Urine Clarity (Clear) Urine pH (5.0-8.0) pH Units Ur Specific [place] (1.010-1.025) Urine Protein (Neg-Trace) mg/dL Urine Glucose (UA) (Normal) mg/dL Urine Ketones (Negative) mg/dL Urine Blood (Negative) Urine Nitrite (Negative) Urine Bilirubin (Negative) Urine Urobilinogen (Normal) mg/dL Ur Leukocyte Esterase (Negative) Urine Microscopic RBC (0-3) per hpf Urine Microscopic WBC (0-3) per hpf Ur Squamous Epith Cells (None-Few) per lpf Urine Bacteria (None-Few) per hpf Hyaline Casts (None-Few) per lpf 06/25/17 06/25/17 06/25/17 Range/Units 22:14 22:14 22:14 WBC (4.3-11.1) K/mcL RBC (4.19-5.50) M/mcL Hgb (12.9-16.9) g/dL Hct (37.5-50.1) % MCV (83.0-100.0) fL MCH (28.0-33.3) pg MCHC (31.6-35.5) g/dL RDW (11.5-14.5) % Plt Count (140-400) K/mcL MPV (9.4-12.4) fL Immature Gran % (0-4) % Seg Neutrophils % % Lymphocytes % % Monocytes % % Eosinophils % % Basophils % % Neutrophils # (1.6-8.9) K/mcL Lymphocytes # (0.6-4.6) K/mcL Monocytes # (0.0-1.3) K/mcL Eosinophils # (0.0-0.6) K/mcL Basophils # (0.0-0.2) K/mcL APTT 38.0 H (26.0-36.0) Seconds Sodium (136-145) mEq/L Potassium (3.5-5.1) mEq/L Chloride (98-107) mEq/L Carbon Dioxide (23-29) mEq/L BUN (6-20) mg/dL Creatinine (0.70-1.30) mg/dL Est GFR ( Amer) (> 60) Est GFR (Non-Af Amer) (> 60) BUN/Creatinine Ratio (6-26) Glucose (70-105) mg/dL Calculated Osmolality (280-300) Lactic Acid (0.5-2.2) mmol/L Calcium (8.6-10.3) mg/dL Phosphorus (2.7-4.5) mg/dL Magnesium (1.6-2.6) mg/dL Total Bilirubin (0.3-1.0) mg/dL Direct Bilirubin (0.0-0.2) mg/dL Indirect Bilirubin (0.0-1.2) mg/dL AST (13-39) Units/L ALT (7-52) Units/L Alkaline Phosphatase (34-104) Units/L Troponin I < 0.03 (< 0.04) ng/mL B-Natriuretic Peptide 49 (Less than 100) pg/mL Serum Total Protein (6.4-8.9) g/dL Albumin (3.5-5.7) g/dL Globulin (2.4-3.5) g/dL Albumin/Globulin Ratio (1.1-2.2) Urine Color (Yellow) Urine Clarity (Clear) Urine pH (5.0-8.0) pH Units Ur Specific [place] (1.010-1.025) Urine Protein (Neg-Trace) mg/dL Urine Glucose (UA) (Normal) mg/dL Urine Ketones (Negative) mg/dL Urine Blood (Negative) Urine Nitrite (Negative) Urine Bilirubin (Negative) Urine Urobilinogen (Normal) mg/dL Ur Leukocyte Esterase (Negative) Urine Microscopic RBC (0-3) per hpf Urine Microscopic WBC (0-3) per hpf Ur Squamous Epith Cells (None-Few) per lpf Urine Bacteria (None-Few) per hpf Hyaline Casts (None-Few) per lpf 06/25/17 06/26/17 Range/Units 23:20 00:07 WBC (4.3-11.1) K/mcL RBC (4.19-5.50) M/mcL Hgb (12.9-16.9) g/dL Hct (37.5-50.1) % MCV (83.0-100.0) fL MCH (28.0-33.3) pg MCHC (31.6-35.5) g/dL RDW (11.5-14.5) % Plt Count (140-400) K/mcL MPV (9.4-12.4) fL Immature Gran % (0-4) % Seg Neutrophils % % Lymphocytes % % Monocytes % % Eosinophils % % Basophils % % Neutrophils # (1.6-8.9) K/mcL Lymphocytes # (0.6-4.6) K/mcL Monocytes # (0.0-1.3) K/mcL Eosinophils # (0.0-0.6) K/mcL Basophils # (0.0-0.2) K/mcL APTT (26.0-36.0) Seconds Sodium (136-145) mEq/L Potassium (3.5-5.1) mEq/L Chloride (98-107) mEq/L Carbon Dioxide (23-29) mEq/L BUN (6-20) mg/dL Creatinine (0.70-1.30) mg/dL Est GFR ( Amer) (> 60) Est GFR (Non-Af Amer) (> 60) BUN/Creatinine Ratio (6-26) Glucose (70-105) mg/dL Calculated Osmolality (280-300) Lactic Acid 2.2 (0.5-2.2) mmol/L Calcium (8.6-10.3) mg/dL Phosphorus (2.7-4.5) mg/dL Magnesium (1.6-2.6) mg/dL Total Bilirubin (0.3-1.0) mg/dL Direct Bilirubin (0.0-0.2) mg/dL Indirect Bilirubin (0.0-1.2) mg/dL AST (13-39) Units/L ALT (7-52) Units/L Alkaline Phosphatase (34-104) Units/L Troponin I (< 0.04) ng/mL B-Natriuretic Peptide (Less than 100) pg/mL Serum Total Protein (6.4-8.9) g/dL Albumin (3.5-5.7) g/dL Globulin (2.4-3.5) g/dL Albumin/Globulin Ratio (1.1-2.2) Urine Color Dark Yellow (Yellow) Urine Clarity Turbid A (Clear) Urine pH 5.5 (5.0-8.0) pH Units Ur Specific [place] 1.025 (1.010-1.025) Urine Protein 100 H (Neg-Trace) mg/dL Urine Glucose (UA) Normal (Normal) mg/dL Urine Ketones Trace H (Negative) mg/dL Urine Blood Negative (Negative) Urine Nitrite Positive A (Negative) Urine Bilirubin Small H (Negative) Urine Urobilinogen Normal (Normal) mg/dL Ur Leukocyte Esterase Moderate H (Negative) Urine Microscopic RBC 5-15 H (0-3) per hpf Urine Microscopic WBC TNTC H (0-3) per hpf Ur Squamous Epith Cells Many H (None-Few) per lpf Urine Bacteria Many H (None-Few) per hpf Hyaline Casts Few (None-Few) per lpf
[2017-06-26] MEDS ORDERED: Ondansetron 4 MG/2 ML VIAL IVP PRN (05:26)
[2017-06-26] MEDS ORDERED: *HR* Morphine 2 MG/ML SYRINGE IVP PRN (05:26)
[2017-06-26] MEDS ORDERED: Acetaminophen 325 MG TABLET PO PRN (05:26)
[2017-06-26] MEDS ORDERED: Naloxone 0.4 MG/ML INJ IVP PRN (05:26)
--- NOTE | 2017-06-26 05:40 | Internal Med History&Physical ---
Date of Encounter: 06/26/17 Time of Encounter: 05:15 Assessment and Plan (1) UTI (urinary tract infection) Current visit: Yes Status: Acute Presented with urinary symptoms. Urine dipstick is suggestive of UTI, follow up urine and blood cultures. Previous urine cultures remained negative. Continue IV Rocephin for now. May need urology follow-up as outpatient. Qualifiers: Urinary tract infection type: site unspecified Hematuria presence: without hematuria Qualified Code(s): N39.0 - Urinary tract infection, site not specified (2) Sepsis Current visit: Yes Status: Acute Patient presents with urinary symptoms, noted to have leukocytosis and tachycardia. Continue IV antibiotics and follow cultures. Serum lactic acid noted to be within normal limits. Qualifiers: Sepsis type: sepsis due to unspecified organism Qualified Code(s): A41.9 - Sepsis, unspecified organism (3) Paroxysmal atrial fibrillation with rapid ventricular response Current visit: Yes Status: Acute Received a dose of IV metoprolol in the emergency room, heart rate responded well. Continue telemetry monitoring, oral beta kevin, long-term anticoagulation with Xarelto. (4) Hypertension Current visit: Yes Status: Chronic Qualifiers: Hypertension type: essential hypertension Qualified Code(s): I10 - Essential (primary) hypertension (5) Pulmonary embolism Current visit: Yes Status: Chronic continue supplemental O2 and anticoagulation with Xarelto; Qualifiers: Pulmonary embolism type: other Chronicity: chronic Acute cor pulmonale presence: without acute cor pulmonale Qualified Code(s): I27.82 - Chronic pulmonary embolism (6) ZULEIMA (acute kidney injury) Current visit: Yes Status: Acute Likely secondary to ATN from dehydration and underlying UTI. Continue IV hydration, monitor serum creatinine closely. Avoid nephrotoxic agents. (7) Diabetes mellitus Current visit: Yes Status: Chronic Per patient's , he is a borderline diabetic. Check hemoglobin A1c. Start Accu-Chek blood glucose monitoring with sliding scale insulin as needed. Diabetic diet. Qualifiers: Diabetes mellitus type: type 2 Diabetes mellitus complication status: with unspecified complications Diabetes mellitus mcfp insulin use: without mcfp use Qualified Code(s): E11.8 - Type 2 diabetes mellitus with unspecified complications Internal Medicine - H&P: HPI Chief complaint: Nausea, dizziness, back pain Admitted From: Emergency Dept Plans for Post Hospital Care: Home History of present illness: Mr. Dodge is a 46 year old male with h/o- a.fib, medical noncompliance, h/o- PE, presents with c/o- foul-smelling urine and low back pain. He reports a 2- week h/o- foul-smelling urine. This was gradually associated with lower abdominal cramps and low back pain. Symptoms started getting worse for the last 2 days along with nausea, chills and dizziness. He actually had the symptoms to his atrial fibrillation. No vomiting, diarrhea, fever, chills. Patient and his report a history of frequent and recurrent UTIs at least 3 episodes in the last 3 months, I do not find any documentation of this at our hospital. Past Med Surg Social Fam HX - Past Medical History Medical history: arthritis, asthma, atrial fibrillation, diabetes, hyperlipidemia, hypertension, pulmonary embolus, TIA Psychiatric history: anxiety, PTSD - Past Surgical History Surgical History: non-contributory, other - Social History Smoking Status: Never smoker Smokeless Tobacco Status: No Alcohol use: none Drug use: none Occupational status: disabled Current living situation: Home, With Family Activity Level: Uses cane/walker Recent Out of Country Travel Within the Last 8 Weeks: No Exposure or Possible Exposure to Illness During Travel: No - Family History Sister Hx Family Cardiac Disorders: No Hx Family Respiratory Disorders: No Hx Family Cancer: Yes (Thyroid cancer) Hx Family GI Disorders: Yes (ben) Hx Family Genitourinary Disorders: No Hx Family Endocrine Disorder: Yes (DM) Hx Family Musculoskeletal Disorders: No Hx Family Neuromuscular Disorders: No Hx Family Neurologic Disorders: No Hx Family HEENT Disorders: No Hx Family Autoimmune Disorders: No Hx Family Reproductive Disorders: No Hx Family Psychosocial Disorders: No Hx Family Medical Disorders: No Mother Hx Family Cardiac Disorders: Yes (A-Fib) Hx Family Endocrine Disorder: Yes (DM) Internal Medicine - H&P: Meds Albuterol Sulfate [Ventolin Hfa] 2 puff IH Q4H PRN 05/28/16 [History] Ammonium Lactate [Patricia-Hydrolac] 1 appl TP BID PRN 05/28/16 [History] Beclomethasone Diprop 40mcg [QVAR 40 mcg] 1 puff IH BID 05/28/16 [History] Atorvastatin [Lipitor] 40 mg PO HS 03/20/17 [History] Metoprolol [Lopressor] 100 mg PO BID 03/20/17 [History] Oxycodone HCl/Acetaminophen [Percocet 10-325 mg Tablet] 1 tab PO Q6H PRN [History] Rivaroxaban [Xarelto] 20 mg PO DAILY 03/20/17 [History] 3 Allergy/AdvReac Type Severity Reaction Status Date / Time No Known Allergies Allergy Verified 06/25/17 21:38 All Systems PM: A 10-system review of systems was performed and is negative for pertinent findings except as documented above in the HPI. - Constitutional Constitutional: chills, fatigue, malaise, no fever(s), no night sweats - EENT Eyes: no change in vision, no discharge, no pain, no photophobia Ears: no ear discharge, no ear pain, no tinnitus Nose, mouth and throat: no dysphagia, no nasal discharge, no neck pain, no sore throat - Cardiovascular Cardiovascular ROS IM: lightheadedness - Respiratory Respiratory: no cough, no dyspnea, no wheezing, no excessive phlegm production - Gastrointestinal Gastrointestinal: abdominal pain, nausea - Musculoskeletal Musculoskeletal ROS IM: no numbness, no tingling - Integumentary Integumentary IM: no rash, no unusual bruising - Neurological Neurological ROS: no confusion, no convulsions, no focal weakness, no numbness, no tingling, no tremor(s) - Hematologic/Lymphatic Hematologic/Lymphatic: no easy bruising - Constitutional Vitals: Temp Pulse Resp BP Pulse Ox 97.3 F L 95 16 112/69 95 06/26/17 03:43 06/26/17 03:43 06/26/17 03:43 06/26/17 03:43 06/26/17 03:43 General appearance: Present: A&O X 3, answers questions appropriately - Respiratory Respiratory exam: Present: CTAB. Absent: accessory muscle use, rales, rhonchi, wheezes - Cardiovascular Cardiovascular exam: Present: irregular rhythm, +S1, +S2. Absent: diastolic murmur, gallop, rubs, systolic murmur - GI/Abdominal GI/Abdominal exam: Present: normal bowel sounds, soft, no peritoneal signs. Absent: distended, tenderness - Extremities Exam Extremities exam: Present: full ROM, warm, radial pulses palpable and symmetrical. Absent: calf tenderness, cyanotic, pedal edema - Neurological Exam Neurological exam: Present: CN II-XII intact, oriented X3, no focal deficits. Absent: pronater drift, facial droop, speech deficit - Skin Skin exam: Present: dry, intact Internal Med - H&P Results - Labs CBC & Chem 7: 06/25/17 22:14 06/25/17 22:14 - EKG Data -: EKG Interpreted by Myself (a.fib with RVR at 126bpm) Rate: tachycardia
[2017-06-26] MEDS ORDERED: *HR* Rivaroxaban 10 MG TABLET PO SCH (09:00)
[2017-06-26] MEDS: *HR* OxyCODONE/APAP 10/325 TABLET PO PRN ×2 (10:34→18:37)
[2017-06-26] MEDS: Metoprolol 100 MG TABLET PO SCH ×2 (10:34→21:07)
[2017-06-26] MEDS: Beclomethasone 40mcg MDI IH SCH ×2 (12:15→20:01)
[2017-06-26] MEDS ORDERED: Dextrose Gel 15 GM/37.5 ML TUBE PO PRN ×2 (14:31)
[2017-06-26] MEDS ORDERED: D5% in Water 1,000 ML IVC PRN (14:31)
[2017-06-26] MEDS ORDERED: *HR* Dextrose 50 % in Water (Syg) 50 ML SYRINGE IVP PRN (14:31)
--- NOTE | 2017-06-26 15:08 | Event Note ---
Date of Encounter: 06/26/17 Time of Encounter: 09:40 Patient is doing better today. He still has some dysuria and left flank pain. Denies any hematuria. No nausea or vomiting. No fever this morning. Continue current management for UTI with IV antibiotics. Heart rate is better controlled. Having good urine output. Place patient on insulin and before meals at bedtime Accu-Cheks. Diabetic diet. Monitor vital signs closely. Continue anticoagulation with Xarelto.
[2017-06-26] MEDS ORDERED: cefTRIAXone 1,000 MG in Water for inj. (sterile) 10 ML IVP SCH (18:00)
[2017-06-26] MEDS: *HR* Rivaroxaban 10 MG TABLET PO SCH (18:28)
[2017-06-26] MEDS: Insulin LISPRO 300 UNITS/3 ML VIAL SQ SCH ×2 (18:34→21:06)
[2017-06-27] MEDS: *HR* OxyCODONE/APAP 10/325 TABLET PO PRN ×4 (00:38→23:43)
[2017-06-27 05:11] LABS: Eosinophils % 3.7 %; Hematocrit 41.7 % (37.5-50.1); Immature Granulocytes % 0.3 % (0-4); Lymphocytes % 36.7 %; Mean Corpuscular HGB Conc 31.4 g/dL (31.6-35.5); Mean Corpuscular Hemoglobin 27.5 pg (28.0-33.3); Mean Corpuscular Volume 87.4 fL (83.0-100.0); Mean Platelet Volume 12.4 fL (9.4-12.4); Monocytes % 7.5 %; Platelet Count 195 K/mcL (140-400); Red Blood Count 4.77 M/mcL (4.19-5.50); Red Cell Distribution Width 15.7 % (11.5-14.5); Segmented Neutrophils % 51.5 %
[2017-06-27 05:12] LABS: Basophils % 0.3 %; Eosinophils # 0.3 K/mcL (0.0-0.6); Hemoglobin 13.1 g/dL (12.9-16.9); Lymphocytes # 3.4 K/mcL (0.6-4.6); Monocytes # 0.7 K/mcL (0.0-1.3); Neutrophils # 4.8 K/mcL (1.6-8.9)
[2017-06-27 05:25] LABS: BUN/Creatinine Ratio 21 (6-26); Blood Urea Nitrogen 19 mg/dL (6-20); Calcium 8.4 mg/dL (8.6-10.3); Carbon Dioxide 26 mEq/L (23-29); Chloride 108 mEq/L (98-107); Glucose 105 mg/dL (70-105); Osmolality,Calculated 291 (280-300); Potassium 4.4 mEq/L (3.5-5.1); Sodium 139 mEq/L (136-145); eGFR For African Americans > 60 (> 60); eGFR For Non-African Americans > 60 (> 60)
[2017-06-27] MEDS: Insulin LISPRO 300 UNITS/3 ML VIAL SQ SCH ×4 (09:00→21:33)
[2017-06-27] MEDS: Metoprolol 100 MG TABLET PO SCH ×2 (09:01→21:50)
[2017-06-27] MEDS: Beclomethasone 40mcg MDI IH SCH ×2 (11:16→19:36)
--- NOTE | 2017-06-27 13:50 | Internal Med Progress Note ---
Date of Encounter: 06/27/17 Time of Encounter: 09:10 - Assessment and plan (1) Sepsis Current Visit: Yes Status: Resolved Assessment and plan: Blood and urine cultures are negative. Leukocytosis has resolved. Complete short course of antibiotics to treat underlying UTI. Qualifiers: Sepsis type: sepsis due to unspecified organism Qualified Code(s): A41.9 - Sepsis, unspecified organism (2) UTI (urinary tract infection) Current Visit: Yes Status: Acute Assessment and plan: Resolving. WBC is normal. Sepsis has resolved. Blood cultures and urine cultures are negative. No organism has been identified. We will transition antibiotic to oral Levaquin. Patient is clinically stable for discharge but states he feels uncomfortable about going home today given that he had an abnormal reading of his heart rate last night. I explained to him that there is no record of that on telemetry but he is insistent that he stay another day in the hospital as he does not want to be discharged and have to come back again. Will discharge patient tomorrow morning. Qualifiers: Urinary tract infection type: acute cystitis Hematuria presence: without hematuria Qualified Code(s): N30.00 - Acute cystitis without hematuria (3) ZULEIMA (acute kidney injury) Current Visit: Yes Status: Resolved Assessment and plan: Now resolved. (4) Diabetes mellitus Current Visit: Yes Status: Chronic Assessment and plan: Controlled. Continue current insulin regimen Qualifiers: Diabetes mellitus type: type 2 Diabetes mellitus complication status: with unspecified complications Diabetes mellitus intermodal dispatcher insulin use: without group home use Qualified Code(s): E11.8 - Type 2 diabetes mellitus with unspecified complications (5) Hypertension Current Visit: Yes Status: Chronic Assessment and plan: Controlled Qualifiers: Hypertension type: essential hypertension Qualified Code(s): I10 - Essential (primary) hypertension (6) Paroxysmal atrial fibrillation with rapid ventricular response Current Visit: Yes Status: Acute Assessment and plan: No record of heart rate greater than 110 overnight on telemetry. Presently remains in A. fib but rate controlled. On anticoagulation. (7) Pulmonary embolism Current Visit: Yes Status: Chronic Assessment and plan: Continue Xarelto Qualifiers: Pulmonary embolism type: other Chronicity: chronic Acute cor pulmonale presence: without acute cor pulmonale Qualified Code(s): I27.82 - Chronic pulmonary embolism - Subjective Interval history: No fever or chills reported overnight. States that last night when his heart rate was checked, it was found to be at 188. There is no record of this on telemetry. He denies having any palpitations or dizziness at that time. No back pain today. No dysuria. - Constitutional Vitals: Temp Pulse Resp BP Pulse Ox 97.5 F L 84 18 119/88 93 06/27/17 11:16 06/27/17 11:16 06/27/17 11:18 06/27/17 11:16 06/27/17 11:18 General appearance: Present: A&O X 3, answers questions appropriately - Neck Neck exam general surgery: Present: supple, trachea midline. Absent: lymphadenopathy - Respiratory Respiratory exam: Present: CTAB. Absent: accessory muscle use, rales, rhonchi, wheezes - Cardiovascular Cardiovascular exam: Present: RRR, +S1, +S2. Absent: diastolic murmur, gallop, rubs, systolic murmur - GI/Abdominal GI/Abdominal exam: Present: normal bowel sounds, soft, no peritoneal signs. Absent: distended, tenderness - Extremities Exam Extremities exam: Present: warm, radial pulses palpable and symmetrical. Absent : calf tenderness, cyanotic, pedal edema Internal Medicine: Result - Labs CBC & Chem 7: 06/27/17 03:27 06/27/17 03:27 Labs: Short CBC 06/27/17 Range/Units 03:27 WBC 9.3 (4.3-11.1) K/mcL Hgb 13.1 D (12.9-16.9) g/dL Hct 41.7 (37.5-50.1) % Plt Count 195 (140-400) K/mcL Neutrophils # 4.8 (1.6-8.9) K/mcL BMP 06/27/17 03:27 Sodium 139 Potassium 4.4 Chloride 108 H Carbon Dioxide 26 BUN 19 Creatinine 0.91 Glucose 105 Calcium 8.4 L Consult Discharge Plan - Plan Referrals: NONE,PCP [Primary Care Provider] -
[2017-06-27] MEDS: *HR* Rivaroxaban 10 MG TABLET PO SCH (17:14)
--- NOTE | 2017-06-27 19:26 | Electrocardiograph Report ---
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
--- NOTE | 2017-06-27 19:37 | Electrocardiograph Report ---
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
[2017-06-28 07:39] VITALS: BP 118/81
[2017-06-28] MEDS: Metoprolol 100 MG TABLET PO SCH (07:47)
[2017-06-28] MEDS: *HR* OxyCODONE/APAP 10/325 TABLET PO PRN ×2 (07:47→14:16)
[2017-06-28] MEDS: Insulin LISPRO 300 UNITS/3 ML VIAL SQ SCH ×3 (07:47→16:34)
[2017-06-28] MEDS ORDERED: levoFLOXacin 500 MG TABLET PO SCH (09:00)
--- NOTE | 2017-06-28 09:18 | Discharge Summary ---
Date of Encounter: 06/28/17 Time of Encounter: 08:45 - Discharge Diagnosis (1) Sepsis Priority: Primary Status: Resolved Qualifiers: Sepsis type: sepsis due to unspecified organism Qualified Code(s): A41.9 - Sepsis, unspecified organism (2) UTI (urinary tract infection) Priority: Secondary Status: Acute Qualifiers: Urinary tract infection type: acute cystitis Hematuria presence: without hematuria Qualified Code(s): N30.00 - Acute cystitis without hematuria (3) ZULEIMA (acute kidney injury) Priority: Secondary Status: Resolved (4) Diabetes mellitus Priority: Secondary Status: Chronic Qualifiers: Diabetes mellitus type: type 2 Diabetes mellitus complication status: with unspecified complications Diabetes mellitus long goods drier insulin use: without half-way use Qualified Code(s): E11.8 - Type 2 diabetes mellitus with unspecified complications (5) Hypertension Priority: Secondary Status: Chronic Qualifiers: Hypertension type: essential hypertension Qualified Code(s): I10 - Essential (primary) hypertension (6) Paroxysmal atrial fibrillation with rapid ventricular response Priority: Secondary Status: Acute (7) Pulmonary embolism Priority: Secondary Status: Chronic Qualifiers: Pulmonary embolism type: other Chronicity: chronic Acute cor pulmonale presence: without acute cor pulmonale Qualified Code(s): I27.82 - Chronic pulmonary embolism - Discharge Medications Prescriptions: levoFLOXacin [Levaquin] 500 mg PO DAILY #5 tablet Home Medications: Albuterol Sulfate [Ventolin Hfa] 2 puff IH Q4H PRN 05/28/16 [History] Ammonium Lactate [Patricia-Hydrolac] 1 appl TP BID PRN 05/28/16 [History] Beclomethasone Diprop 40mcg [QVAR 40 mcg] 1 puff IH BID 05/28/16 [History] Atorvastatin [Lipitor] 40 mg PO HS 03/20/17 [History] Metoprolol [Lopressor] 100 mg PO BID 03/20/17 [History] Oxycodone HCl/Acetaminophen [Percocet 10-325 mg Tablet] 1 tab PO Q6H PRN [History] Rivaroxaban [Xarelto] 20 mg PO DAILY 03/20/17 [History] levoFLOXacin [Levaquin] 500 mg PO DAILY #5 tablet 06/28/17 [Rx] Allergies/Adverse Reactions: 3 Allergy/AdvReac Type Severity Reaction Status Date / Time No Known Allergies Allergy Verified 12/26/17 21:38 Date of admission: 06/26/17 06:11 Primary care physician: PCP NONE Discharging clinician: Raquel Camacho Anticipated date of discharge: 06/28/17 - Patient Status Disposition: Home, Self-Care Condition: Good Functional capacity at discharge: independent ambulation Overall status at discharge: patient is progressing back to baseline - Discharge Instructions Instructions: Levofloxacin (By mouth), Atrial Fibrillation (DC), Urinary Tract Infection in Men (DC), Diabetes Mellitus Type 2 in Adults (DC), Sepsis (DC), Chronic Hypertension (DC) Follow Up With: Rory Poe MD [Partnered Physician] - 07/11/17 2:00 pm (in 1-2 weeks for recurrent UTI/ ? bladder wall thickening) NONE,PCP [Primary Care Provider] - Forms: ED Satisfaction Letter, Work/School Release - Diet and Activity Activity: increase activity as tolerated Diet: diabetic diet, low fat, low cholesterol, low salt diet Hospital course: Mr. Dodge is a 46 year old male patient with history of prior pulmonary embolism on anticoagulation, Afib, diabetes, hypertension, recurrent urinary tract infections was hospitalized here with sepsis related to UTI and acute kidney injury. He was started on IV antibiotics and IV fluids with improvement in his symptoms. His blood and urine cultures have been negative. His renal function has normalized.his lactate level has also normalized. She is clinically stable for discharge at this time. Given his recurrent urine infections without any clear source, I recommend that he follow up with urology for cystoscopy and further evaluation. We will make arrangements for outpatient follow-up. For now he will complete antibiotic treatment course with levofloxacin. - Time Spent with Patient Total time spent providing and/or coordinating discharge services: Less than 30 minutes (25 min) - Constitutional Vitals: Temp Pulse Resp BP Pulse Ox 97.7 F 75 18 118/81 95 06/28/17 07:36 06/28/17 07:36 06/28/17 07:36 06/28/17 07:36 06/28/17 07:36 General appearance: Present: A&O X 3, answers questions appropriately - Neck Neck exam general surgery: Present: supple, trachea midline. Absent: lymphadenopathy - Respiratory Respiratory exam: Present: CTAB. Absent: accessory muscle use, rales, rhonchi, wheezes - Cardiovascular Cardiovascular exam: Present: RRR, +S1, +S2. Absent: diastolic murmur, gallop, rubs, systolic murmur - GI/Abdominal GI/Abdominal exam: Present: normal bowel sounds, soft, no peritoneal signs. Absent: distended, tenderness - Extremities Exam Extremities exam: Present: warm, radial pulses palpable and symmetrical. Absent : calf tenderness, cyanotic, pedal edema
[2017-06-28] MEDS: Beclomethasone 40mcg MDI IH SCH (11:17)
[2017-06-28] MEDS: *HR* Rivaroxaban 10 MG TABLET PO SCH (16:33)
== END 2017-06-28 20:30 | disposition home or self-care (01) | DRG 720 ==
LOC: EMEROO 21:36 → 3BNU 21:36 → SUATTDRO 06-26 06:11
PROVIDERS: ADMIT Internal Medicine; ATTEND Internal Medicine

== ENCOUNTER 2017-07-23 20:50 | Observation (INO) ==
[2017-07-23] MEDS ORDERED: 0.9 % Sodium Chloride 1,000 ML IVC ONE (21:34)
[2017-07-23] MEDS ORDERED: Aspirin 81 MG TAB.CHEW PO ONE (21:37)
[2017-07-23 21:54] LABS: Basophils % 0.3 %; Eosinophils # 0.1 K/mcL (0.0-0.6); Eosinophils % 0.6 %; Hematocrit 54.5 % (37.5-50.1); Hemoglobin 17.3 g/dL (12.9-16.9); Immature Granulocytes % 0.3 % (0-4); Lymphocytes # 1.6 K/mcL (0.6-4.6); Mean Corpuscular HGB Conc 31.7 g/dL (31.6-35.5); Mean Corpuscular Hemoglobin 27.2 pg (28.0-33.3); Mean Corpuscular Volume 85.8 fL (83.0-100.0); Mean Platelet Volume 11.6 fL (9.4-12.4); Monocytes # 0.5 K/mcL (0.0-1.3); Monocytes % 4.1 %; Neutrophils # 8.7 K/mcL (1.6-8.9); Platelet Count 204 K/mcL (140-400); Red Blood Count 6.35 M/mcL (4.19-5.50); Red Cell Distribution Width 14.8 % (11.5-14.5); Segmented Neutrophils % 79.7 %
[2017-07-23] MEDS ORDERED: *HR* Metoprolol 5 MG/5 ML VIAL IVP ONE (22:04)
[2017-07-23 22:14] LABS: INR 1.2; Prothrombin Time 12.8 Seconds (9.4-12.1)
[2017-07-23 22:17] LABS: Activated Partial Thrombo Time 31.6 Seconds (26.0-36.0)
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
[2017-07-23 23:01] LABS: Bilirubin,Urine Small (Negative); Blood,Urine Negative (Negative); Clarity,Urine Cloudy (Clear); Color,Urine Dark Yellow (Yellow); Glucose,Urine (UA) Normal (Normal); Ketones,Urine Negative (Negative); Leukocyte Esterase,Urine Negative (Negative); Nitrite,Urine Negative (Negative); PH,Urine 5.5 pH Units (5.0-8.0); Protein,Urine 30 mg/dL (Neg-Trace); Specific Gravity,Urine 1.026 (1.010-1.025); Urobilinogen,Urine Normal (Normal)
[2017-07-23 23:03] LABS: Bacteria,Urine None Seen per hpf (None-Few); Squamous Epithelial Cell,Urine Many per lpf (None-Few)
[2017-07-23 23:13] LABS: Hyaline Casts,Urine Moderate per lpf (None-Few)
[2017-07-23] MEDS ORDERED: Heparin 25,000 UNIT/500 ML D5W 25,000 UNIT/500 ML BAG IVC SCH (23:45)
[2017-07-23] MEDS ORDERED: *HR* Heparin 5,000 UNIT/ML VIAL IVP ONE (23:52)
[2017-07-23] MEDS ORDERED: *HR* Heparin 5,000 UNIT/ML VIAL IVP PRN ×2 (23:52)
[2017-07-24 00:31] LABS: Hematocrit 48.6 % (37.5-50.1); Mean Corpuscular HGB Conc 31.9 g/dL (31.6-35.5); Mean Corpuscular Hemoglobin 27.1 pg (28.0-33.3); Mean Corpuscular Volume 84.8 fL (83.0-100.0); Mean Platelet Volume 11.9 fL (9.4-12.4); Platelet Count 190 K/mcL (140-400); Red Blood Count 5.73 M/mcL (4.19-5.50); Red Cell Distribution Width 14.5 % (11.5-14.5)
[2017-07-24 00:43] LABS: BUN/Creatinine Ratio 14 (6-26); Blood Urea Nitrogen 19 mg/dL (6-20); Calcium 9.9 mg/dL (8.6-10.3); Carbon Dioxide 22 mEq/L (23-29); Chloride 101 mEq/L (98-107); Glucose 87 mg/dL (70-105); Osmolality,Calculated 290 (280-300); Potassium 3.8 mEq/L (3.5-5.1); Sodium 139 mEq/L (136-145); eGFR For African Americans > 60 (> 60); eGFR For Non-African Americans 54 (> 60)
[2017-07-24 00:44] LABS: Hemoglobin 15.5 g/dL (12.9-16.9)
[2017-07-24] MEDS ORDERED: Naloxone 0.4 MG/ML INJ IVP PRN (03:19)
[2017-07-24] MEDS ORDERED: Acetaminophen 325 MG TABLET PO PRN (03:19)
[2017-07-24] MEDS ORDERED: D5% in Water 1,000 ML IVC PRN (03:26)
[2017-07-24] MEDS ORDERED: *HR* Dextrose 50 % in Water (Syg) 50 ML SYRINGE IVP PRN (03:26)
[2017-07-24] MEDS ORDERED: Dextrose Gel 15 GM/37.5 ML TUBE PO PRN ×2 (03:26)
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
[2017-07-24] MEDS: *HR* OxyCODONE/APAP 10/325 TABLET PO PRN ×3 (04:08→20:06)
[2017-07-24] MEDS: 0.9 % Sodium Chloride 1,000 ML IVC SCH ×2 (07:04→16:13)
[2017-07-24 07:21] LABS: Basophils % 0.4 %; Eosinophils # 0.2 K/mcL (0.0-0.6); Eosinophils % 2.2 %; Hematocrit 46.1 % (37.5-50.1); Hemoglobin 14.9 g/dL (12.9-16.9); Immature Granulocytes % 0.2 % (0-4); Lymphocytes # 3.7 K/mcL (0.6-4.6); Lymphocytes % 36.5 %; Mean Corpuscular HGB Conc 32.3 g/dL (31.6-35.5); Mean Corpuscular Volume 83.7 fL (83.0-100.0); Mean Platelet Volume 12.1 fL (9.4-12.4); Monocytes # 0.9 K/mcL (0.0-1.3); Neutrophils # 5.3 K/mcL (1.6-8.9); Platelet Count 180 K/mcL (140-400); Red Blood Count 5.51 M/mcL (4.19-5.50); Red Cell Distribution Width 14.3 % (11.5-14.5); Segmented Neutrophils % 51.7 %
[2017-07-24 08:11] LABS: Activated Partial Thrombo Time 198.6 Seconds (26.0-36.0)
--- NOTE | 2017-07-24 08:18 | Electrocardiograph Report ---
[place] [id number] Test Date: 2017-07-23 Pat Name: Jaylen Dodge Department: 102 Room: 3B Gender: M Outbound Sales Executive: Ekp : 1970 Requested By: Michel Leal Order Number: [id number] Reading MD: Lesvia Martínez Measurements Intervals [place] Rate: 133 P: [place]: 0 QRS: 25 QRSD: 93 T: -59 QT: 310 QTc: 388 Interpretive Statements ATRIAL FIBRILLATION WITH RAPID VENTRICULAR RESPONSE NONSPECIFIC ST & T-WAVE ABNORMALITY Electronically Signed On 07-24-2017 8:17:33 EST by Lesvia Martínez
--- NOTE | 2017-07-24 08:20 | Electrocardiograph Report ---
[address] [place], [place] [address] Test Date: 2017-07-23 Pat Name: Jaylen Dodge Department: 104 Room: 3B Gender: M Kardex Clerk: NAOMI : 1970 Requested By: Alban Peterson Order Number: [id number] Reading MD: Lesvia Martínez Measurements Intervals [place] Rate: 91 P: [place]: 0 QRS: 41 QRSD: 101 T: 26 QT: 363 QTc: 411 Interpretive Statements ATRIAL FIBRILLATION ABNORMAL RHYTHM ECG Electronically Signed On 07-24-2017 8:18:06 EST by Lesvia Martínez
[2017-07-24 08:25] LABS: Heparin anti-factor XA UFH 0.94 IU/mL (0.30-0.70)
[2017-07-24] MEDS: Insulin LISPRO 300 UNITS/3 ML VIAL SQ SCH ×3 (08:53→16:53)
[2017-07-24] MEDS: Metoprolol 100 MG TABLET PO SCH ×2 (08:53→20:06)
[2017-07-24 09:11] LABS: BUN/Creatinine Ratio 18 (6-26); Blood Urea Nitrogen 20 mg/dL (6-20); Calcium 8.7 mg/dL (8.6-10.3); Carbon Dioxide 25 mEq/L (23-29); Chloride 106 mEq/L (98-107); Glucose 107 mg/dL (70-105); Osmolality,Calculated 289 (280-300); Potassium 4.4 mEq/L (3.5-5.1); Sodium 138 mEq/L (136-145); eGFR For African Americans > 60 (> 60); eGFR For Non-African Americans > 60 (> 60)
[2017-07-24] MEDS: *HR* Rivaroxaban 15 MG TABLET PO SCH ×2 (16:13→20:08)
--- NOTE | 2017-07-24 17:34 | Event Note ---
Date of Encounter: 07/24/17 Time of Encounter: 17:24 Patient line in bed in no distress insert his questions about CTA findings. He is reporting exertional shortness of breath. Will obtain an echocardiogram today. Assessment and Plan (1) Acute renal failure Patient has a mild elevated creatinine from baseline. Patient also had a CTA . D/C IV fluids. Follow-up renal function improved, avoid nephrotoxic medications (2) BENSON (obstructive sleep apnea) Patient was diagnosed as BENSON but not on CPAP at home. Continue nasal cannula oxygen and continuous pulse oximeter monitoring (3) Asthma No wheezing. Continue home medication albuterol inhaler when necessary (4) Paroxysmal atrial fibrillation with rapid ventricular response prescribed xarelto Heart rate is well controlled right now. Continue home medication of metoprolol 100 mg by mouth twice a day for rate control. Resume xarelto. (5) DVT prophylaxis Xarelto Ambulation (6) Hypertension BP stable. Closely monitor BP. Continue metoprolol twice a day (7) Pulmonary embolism History of pulmonary embolism prescribed xarelto. Ran out of xarelto 10 days ago. Repeat CTA shows no new PE and resolving established PE. Resume xarelto. (8) Diabetes mellitus Patient takes metformin at home. Will hold at this time and resume on discharge. Will place patient on sliding scale insulin and accuchecks
[2017-07-24] MEDS ORDERED: Insulin LISPRO 300 UNITS/3 ML VIAL SQ SCH (21:00)
[2017-07-25] MEDS: *HR* OxyCODONE/APAP 10/325 TABLET PO PRN ×3 (03:30→17:52)
[2017-07-25] MEDS: Insulin LISPRO 300 UNITS/3 ML VIAL SQ SCH ×2 (07:30→12:06)
[2017-07-25] MEDS ORDERED: Perflutren Lipid Microsphere 1.3 ML in 0.9 % Sodium Chloride 8.7 ML IVP ONE (08:27)
[2017-07-25] MEDS ORDERED: Lisinopril 20 MG TABLET PO SCH ×2 (09:00→10:45)
[2017-07-25] MEDS: *HR* Rivaroxaban 15 MG TABLET PO SCH (09:57)
[2017-07-25] MEDS ORDERED: Beclomethasone 40mcg MDI IH SCH (10:00)
[2017-07-25 13:26] VITALS: BP 114/77
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
== END 2017-07-25 19:36 | disposition home or self-care (01) ==
LOC: EMEROO 20:50 → 3BNU 20:50
PROVIDERS: ADMIT Internal Medicine; ATTEND Registered Nurse